=== PATIENT | male | born 1970 | race Caucasian/White ===

== ENCOUNTER 2025-06-23 10:50 | Inpatient (IN) ==
--- NOTE | 2025-06-23 11:21 | Emergency Department Note ---
ED Provider Note History of Present Illness Chief Complaint: Flu Like Symptoms Stated Complaint: FLU SX Time Seen by Provider: 06/23/25 11:04 54-year-old male who presents to the emergency department with a female friend (who also provides history) for evaluation of noticeable fatigue and poor appetite. The patient reports that symptoms started last weekend when he was at the gym working out. The patient reports that he felt heavy all over. He then started to develop fatigue. The following day, he did have several episodes of watery diarrhea. Since that time, the patient reports that the diarrhea has somewhat improved. He has not had any runny nose, congestion, sore throat or significant abdominal pain. He does report a mild nonproductive cough. The patient denies any other major health issues other than hypertension. He denies any known sick contacts. He currently denies any chest pain, shortness of breath or headache. He rates his overall discomfort a 6 out of 10. Home Medications Medication Instructions Recorded Confirmed Type losartan 50 mg tablet 50 mg PO DAILY 06/23/25 06/23/25 History metoprolol succinate 25 mg 25 mg PO DAILY 06/23/25 06/23/25 History tablet,extended release 24 hr (Toprol XL) Allergies Allergy/AdvReac Type Severity Reaction Status Date / Time No Known Allergies Allergy Unverified 06/23/25 11:14 Past Med/Surg History Problem List (Updated 06/23/25 @ 16:14 by Isidoro French) Elevated troponin I level (Acute) Anorexia (Acute) Weakness (Acute) Acute kidney injury (Acute) Hyponatremia (Acute) CKD stage 3a, GFR 45-59 ml/min GERD (gastroesophageal reflux disease) Hypokalemia (Acute) Acute diarrhea Sepsis Medical History Hypertension Surgical History No significant past surgical history Social History Smoking Status: Never smoker Preferred Language: Peruvian Feels Safe at Home: Yes Physical Exam Vital Signs Vital Signs - 24 hr 06/23/25 10:55 06/23/25 11:30 06/23/25 11:30 Temperature 36.9 C Temperature Source Temporal Artery Scan Pulse Rate 118 H Pulse Rate from SpO2 Sensor Respiratory Rate 20 Respiratory Effort / Characteristics Non-Labored Spontaneous Respiratory Depth Normal Respiratory Pattern Regular Blood Pressure 115/79 119/76 119/76 Blood Pressure Mean 91 87 87 Blood Pressure Position Sitting Pulse Oximetry 97 Oxygen Delivery Method Room Air Sepsis Recent Fever Within 48 Hours No Sepsis New/Unexplained Change in Mental Status No Sepsis Action Taken by Nursing No Action Required 06/23/25 11:30 06/23/25 11:30 06/23/25 11:30 Temperature Temperature Source Pulse Rate Pulse Rate from SpO2 Sensor Respiratory Rate Respiratory Effort / Characteristics Respiratory Depth Respiratory Pattern Blood Pressure 119/76 119/76 119/76 Blood Pressure Mean 87 87 87 Blood Pressure Position Pulse Oximetry Oxygen Delivery Method Sepsis Recent Fever Within 48 Hours Sepsis New/Unexplained Change in Mental Status Sepsis Action Taken by Nursing 06/23/25 11:30 06/23/25 11:34 06/23/25 11:42 Temperature Temperature Source Pulse Rate 101 H 101 H 99 H Pulse Rate from SpO2 Sensor 101 H 99 H Respiratory Rate 19 17 19 Respiratory Effort / Characteristics Respiratory Depth Respiratory Pattern Blood Pressure Blood Pressure Mean Blood Pressure Position Pulse Oximetry 96 98 97 Oxygen Delivery Method Room Air Sepsis Recent Fever Within 48 Hours Sepsis New/Unexplained Change in Mental Status Sepsis Action Taken by Nursing 06/23/25 11:51 06/23/25 12:00 06/23/25 12:12 Temperature Temperature Source Pulse Rate Pulse Rate from SpO2 Sensor 95 H 95 H 94 H Respiratory Rate 17 21 20 Respiratory Effort / Characteristics Respiratory Depth Respiratory Pattern Blood Pressure Blood Pressure Mean Blood Pressure Position Pulse Oximetry 97 98 99 Oxygen Delivery Method Sepsis Recent Fever Within 48 Hours Sepsis New/Unexplained Change in Mental Status Sepsis Action Taken by Nursing 06/23/25 12:21 06/23/25 12:30 06/23/25 12:42 Temperature Temperature Source Pulse Rate 91 H Pulse Rate from SpO2 Sensor 94 H 95 H Respiratory Rate 20 25 H 20 Respiratory Effort / Characteristics Respiratory Depth Respiratory Pattern Blood Pressure Blood Pressure Mean Blood Pressure Position Pulse Oximetry 97 98 Oxygen Delivery Method Sepsis Recent Fever Within 48 Hours Sepsis New/Unexplained Change in Mental Status Sepsis Action Taken by Nursing 06/23/25 12:48 06/23/25 12:48 06/23/25 12:48 Temperature Temperature Source Pulse Rate Pulse Rate from SpO2 Sensor Respiratory Rate Respiratory Effort / Characteristics Respiratory Depth Respiratory Pattern Blood Pressure 121/62 121/62 121/62 Blood Pressure Mean 87 87 87 Blood Pressure Position Pulse Oximetry Oxygen Delivery Method Sepsis Recent Fever Within 48 Hours Sepsis New/Unexplained Change in Mental Status Sepsis Action Taken by Nursing 06/23/25 12:48 06/23/25 12:48 06/23/25 12:48 Temperature Temperature Source Pulse Rate 87 Pulse Rate from SpO2 Sensor 87 Respiratory Rate 21 Respiratory Effort / Characteristics Respiratory Depth Respiratory Pattern Blood Pressure 121/62 121/62 Blood Pressure Mean 87 87 Blood Pressure Position Pulse Oximetry 93 Oxygen Delivery Method Sepsis Recent Fever Within 48 Hours Sepsis New/Unexplained Change in Mental Status Sepsis Action Taken by Nursing 06/23/25 12:51 06/23/25 12:51 Temperature Temperature Source Pulse Rate 85 88 Pulse Rate from SpO2 Sensor 89 Respiratory Rate 22 Respiratory Effort / Characteristics Respiratory Depth Respiratory Pattern Blood Pressure Blood Pressure Mean Blood Pressure Position Pulse Oximetry 97 Oxygen Delivery Method Sepsis Recent Fever Within 48 Hours Sepsis New/Unexplained Change in Mental Status Sepsis Action Taken by Nursing CONSTITUTIONAL: Healthy and well nourished. Alert and oriented X 3. GCS 15. Patient does not appear in any acute distress, nor does he appear toxic. HEENT: No scleral icterus or conjunctival injection. Mucous membranes are moist. Ears and nares are clear. NECK: Full active range of motion without discomfort. LYMPHATICS: No cervical chain adenopathy. RESPIRATORY: Clear to auscultation bilaterally with no wheezing, crackles, rhonchi or stridor. CARDIOVASCULAR: Regular rate and rhythm with no murmurs, rubs or gallops. GASTROINTESTINAL: Bowel sounds present in all quadrants. Abdomen is soft and nontender to palpation. MUSCULOSKELETAL: Full range of motion of all joints without discomfort. INTEGUMENTARY: No rash or other significant dermatologic conditions noted. HEMATOLOGIC: No ecchymosis or petechiae. PSYCHIATRIC: Positive affect. NEUROLOGIC: No focal neurologic deficits noted. Course Course Patient history and physical exam were performed. Nursing notes were reviewed. Vital signs were reviewed from triage, showing a mild tachycardia. The patient is not febrile, hypoxic, tachypneic or hypotensive. IV access was established, and labs were ordered and drawn. The patient was hydrated with a liter of normal saline. An ECG was performed, showing a sinus tachycardia with prolonged QT. No ischemic changes or infarct noted. The patient was placed on sharebroker while in the emergency department. Portable chest x-ray did not show any concerning findings. Review of labs shows a notable leukocytosis with a white count of nearly 20,000, with neutrophilic shift. Platelet count is normal. Coag study shows an elevated INR of 1.4. CMP shows multiple abnormalities, including hyponatremia, hypokalemia, elevated creatinine of 3.37, elevated total bilirubin and AST, as well as an elevated CPK and troponin of 30.6. TSH was normal. PCR testing for COVID-19, RSV and influenza was negative. Findings were discussed with the patient. I did indicate the severity of his condition, and recommended admission. The patient was in agreement with this plan. The case was then discussed with the [facility] hospitalist service, who did agree with admission. I did order a K rider to get started, in addition to an additional liter normal saline bolus. Please see hospitalist dictations for further treatment and final disposition. Administered Medications Discontinued Medications Sodium Chloride (Nss) 1,000 mls @ 999 mls/hr IV .Q1H1M ONE Stop: 06/23/25 12:14 Last Infusion: 06/23/25 13:05 Dose: Infused Documented By: Admin: 06/23/25 11:28 Dose: 999 mls/hr Documented By: AMS Potassium Chloride (K Teddy / Wtr) 10 meq in 100 mls @ 100 mls/hr IV ONE ONE Stop: 06/23/25 13:36 Last Admin: 06/23/25 12:42 Dose: 100 mls/hr Documented By: cathi Sodium Chloride (Nss) 1,000 mls @ 999 mls/hr IV .Q1H1M ONE Stop: 06/23/25 13:37 Last Admin: 06/23/25 12:43 Dose: 999 mls/hr Documented By: cathi Calcium Gluconate () 1,000 mg in 60 mls @ 240 mls/hr IV NOW STA Stop: 06/23/25 14:52 Last Admin: 06/23/25 15:06 Dose: 240 mls/hr Documented By: hina Potassium Chloride (Potassium Chloride 20 Meq/15 Ml Udc) 40 meq PO NOW STA Stop: 06/23/25 12:56 Last Admin: 06/23/25 13:21 Dose: 40 meq Documented By: asm Potassium Chloride (Potassium Chloride Crtab 20 Meq Tabcr) 40 meq PO NOW STA Stop: 06/23/25 14:38 Last Admin: 06/23/25 15:06 Dose: 40 meq Documented By: hina Medical Decision Making Medical Records Attestation: I reviewed the patient's medical records. Home Medications was personally reviewed by ut Laboratory Data Attestation: I reviewed the patient's lab results. 06/23/25 11:22 06/23/25 13:30 Lab Results 06/23/25 06/23/25 06/23/25 Range/Units 11:19 11:19 11:19 WBC (4.8-10.8) K/ul RBC (4.70-6.10) M/uL Hgb (14.0-18.0) g/dL Hct (42.0-52.0) % MCV (80.0-100.0) fL MCH (25.0-34.0) pg MCHC (32.0-36.0) g/dL RDW Std Deviation (36.4-46.3) fL RDW Coeff of Imani (11.5-14.5) % Plt Count (130-400) K/uL MPV (9.4-12.4) fL Neutrophils % (Manual) % Lymphocytes % (Manual) % Monocytes % (Manual) % Eosinophils % (Manual) % Neutrophils # (Manual) (1.40-6.50) K/uL Total Absolute Neuts (1.4-6.5) K/uL Lymphocytes # (Manual) (1.2-3.4) K/uL Total Abs Lymphocytes (1.2-3.4) K/uL Monocytes # (Manual) (0.11-0.59) K/uL Eosinophils # (Manual) (0-0.50) K/uL PT (9.0-12.0) Seconds INR (0.9-1.1) Sodium (136-145) mmol/L Potassium (3.5-5.1) mmol/L Chloride (98-107) mmol/L Carbon Dioxide (21-32) mmol/L Anion Gap (3-11) BUN (6-23) mg/dl Creatinine (0.6-1.4) mg/dl Est Cr Clr Drug Dosing ml/min eGFR BUN/Creatinine Ratio (10-20) Glucose (70-99(Fasting)) mg/dl Osmolality (280-300) mOsm/kg Calcium (8.6-10.3) mg/dl Magnesium (1.7-2.4) mg/dl Total Bilirubin (0.2-1.0) mg/dl AST (13-39) U/L ALT (7-52) U/L Alkaline Phosphatase (34-104) U/L Total Creatine Kinase (30-223) U/L Troponin I High Sens (0-20) pg/ml Total Protein (6.0-8.3) gm/dl Albumin (3.4-5.0) gm/dl Globulin (2.5-4.0) gm/dl Albumin/Globulin Ratio (0.9-2) TSH (0.300-4.500) uIu/ml Adenovirus (PCR) Not Detected (NotDetected) B. pertussis DNA (PCR) Not Detected (NotDetected) B.parapertussis DNA PCR Not Detected (NotDetected) C. pneumoniae DNA (PCR) Not Detected (NotDetected) Coronavirus OC43 (PCR) Not Detected (NotDetected) Coronavirus HKU1 (PCR) Not Detected (NotDetected) Coronavirus 229E (PCR) Not Detected (NotDetected) SARS-CoV-2 (PCR) NEGATIVE Not Detected (Negative) Coronavirus NL63 (PCR) Not Detected (NotDetected) Monoscreen (Negative) Human Metapneumovir PCR Not Detected (NotDetected) Influenza Type A (PCR) Negative Not Detected (Neg) Influenza Type B (PCR) Negative (Neg) M. pneumoniae (PCR) (NotDetected) Parainfluenza 1 (PCR) (NotDetected) Parainfluenza 2 (PCR) (NotDetected) Parainfluenza 3 (PCR) (NotDetected) Parainfluenza 4 (PCR) (NotDetected) RSV (RT-PCR) (Neg) RSV (PCR) (NotDetected) Entero/Rhino (PCR) (NotDetected) 06/23/25 06/23/25 Range/Units 11:19 11:22 WBC 19.65 H (4.8-10.8) K/ul RBC 5.65 (4.70-6.10) M/uL Hgb 17.5 (14.0-18.0) g/dL Hct 47.5 (42.0-52.0) % MCV 84.1 (80.0-100.0) fL MCH 31.0 (25.0-34.0) pg MCHC 36.8 H (32.0-36.0) g/dL RDW Std Deviation 37.0 (36.4-46.3) fL RDW Coeff of Imani 12.2 (11.5-14.5) % Plt Count 350 (130-400) K/uL MPV 9.1 L (9.4-12.4) fL Neutrophils % (Manual) 88 % Lymphocytes % (Manual) 5 % Monocytes % (Manual) 5 % Eosinophils % (Manual) 2 % Neutrophils # (Manual) 17.29 H (1.40-6.50) K/uL Total Absolute Neuts 17.29 H (1.4-6.5) K/uL Lymphocytes # (Manual) 0.98 L (1.2-3.4) K/uL Total Abs Lymphocytes 0.98 L (1.2-3.4) K/uL Monocytes # (Manual) 0.98 H (0.11-0.59) K/uL Eosinophils # (Manual) 0.39 (0-0.50) K/uL PT 14.3 H (9.0-12.0) Seconds INR 1.4 H (0.9-1.1) Sodium 126 L (136-145) mmol/L Potassium 2.4 L* (3.5-5.1) mmol/L Chloride 90 L (98-107) mmol/L Carbon Dioxide 20 L (21-32) mmol/L Anion Gap 16 H (3-11) BUN 75 H (6-23) mg/dl Creatinine 3.37 H (0.6-1.4) mg/dl Est Cr Clr Drug Dosing 30.9 ml/min eGFR 20.56 BUN/Creatinine Ratio 22.3 H (10-20) Glucose 133 H (70-99(Fasting)) mg/dl Osmolality 284 (280-300) mOsm/kg Calcium 8.6 (8.6-10.3) mg/dl Magnesium 2.3 (1.7-2.4) mg/dl Total Bilirubin 1.6 H (0.2-1.0) mg/dl AST 40 H (13-39) U/L ALT 51 (7-52) U/L Alkaline Phosphatase 64 (34-104) U/L Total Creatine Kinase 480 H (30-223) U/L Troponin I High Sens 30.6 H (0-20) pg/ml Total Protein 7.7 (6.0-8.3) gm/dl Albumin 3.3 L (3.4-5.0) gm/dl Globulin 4.4 H (2.5-4.0) gm/dl Albumin/Globulin Ratio 0.8 L (0.9-2) TSH 0.943 (0.300-4.500) uIu/ml Adenovirus (PCR) (NotDetected) B. pertussis DNA (PCR) (NotDetected) B.parapertussis DNA PCR (NotDetected) C. pneumoniae DNA (PCR) (NotDetected) Coronavirus OC43 (PCR) (NotDetected) Coronavirus HKU1 (PCR) (NotDetected) Coronavirus 229E (PCR) (NotDetected) SARS-CoV-2 (PCR) (Negative) Coronavirus NL63 (PCR) (NotDetected) Monoscreen Negative (Negative) Human Metapneumovir PCR (NotDetected) Influenza Type A (PCR) (Neg) Influenza Type B (PCR) Not Detected (Neg) M. pneumoniae (PCR) Not Detected (NotDetected) Parainfluenza 1 (PCR) Not Detected (NotDetected) Parainfluenza 2 (PCR) Not Detected (NotDetected) Parainfluenza 3 (PCR) Not Detected (NotDetected) Parainfluenza 4 (PCR) Not Detected (NotDetected) RSV (RT-PCR) Negative (Neg) RSV (PCR) Not Detected (NotDetected) Entero/Rhino (PCR) Not Detected (NotDetected) Imaging Data Attestation: I personally reviewed and interpreted this imaging study as follows: My Impression: My interpretation of reportable chest x-ray does not show evidence for pneumonia, pneumothorax or cardiomegaly. Radiologist report was also reviewed with concurrence. Radiologist's Impression: Chest X-Ray 06/23/25 11:15 XR chest 1V portable CLINICAL HISTORY: weakness COMPARISON STUDY: No previous studies for comparison. FINDINGS: Lung volumes are normal. Lungs are clear. There is no pneumothorax or pleural effusion. Cardiac size is normal. Mediastinal contours are normal. There is no evidence for pulmonary edema. IMPRESSION: No acute cardiopulmonary findings. ACT 112: Negative or not required by law. Electronically signed by: Jay Jaimes M.D. 06/23/2025 11:51 AM ECG Data Attestation: I personally reviewed and interpreted this ECG as follows: Indication: + weakness Rate (beats per minute): 101 Rhythm: + sinus tachycardia ECG Intervals/blocks: + Normal QRS and + Prolonged QT ECG [place]: + Normal ECG ST segments: + Normal ST segments Comparison ECG Date: no prior available MDM Narrative Cardiac monitoring: An order was placed for continuous cardiac monitoring. The monitor shows a rate of 101 bpm with a sinus tachycardic rhythm. 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 See ED Course section for further details of today's visit. The patient presents with primary complaint of weakness and poor appetite. His laboratory workup today does show significant findings, including a marked leukocytosis, hyponatremia, hypokalemia, elevated troponin as well as a creatinine of 3.37. I do not have any prior records for comparison, therefore concerning for an acute kidney injury. The patient is afebrile and not hypotensive, therefore I do not suspect SIRS or sepsis. Patient does have multiple electrolyte abnormalities that will require further inpatient repletion. Patient also has a bump to troponin within normal ECG. This will require further serial testing. [facility]. Impression Hyponatremia, Hypokalemia, Acute kidney injury, Weakness, Anorexia, Elevated troponin I level Discharge Plan Visit Data Chief Complaint: Flu Like Symptoms Stated Complaint: FLU SX ED Provider: Julius Kohler ED Midlevel Provider: Isidoro French Discharge Problem: Hyponatremia, Hypokalemia, Acute kidney injury, Weakness, Anorexia, Elevated troponin I level Patient Disposition: Admitted As Inpatient Condition: Fair ED DC CONDITION Conditon at Discharge Condition at Discharge: Fair
[2025-06-23] MEDS: SODIUM CHLORIDE 0.9% 1,000 ML IV ONE ×2 (11:28→12:43)
--- NOTE | 2025-06-23 11:52 | XRay Report ---
XR chest 1V portable CLINICAL HISTORY: weakness COMPARISON STUDY: No previous studies for comparison. FINDINGS: Lung volumes are normal. Lungs are clear. There is no pneumothorax or pleural effusion. Car diac size is normal. Mediastinal contours are normal. There is no evidence for pulmonary edema. IMPRESSION: No acute cardiopulmonary findings. ACT 112: Negative or not required by law. Electronically signed by: Jay Jaimes M.D. 06/23/2025 11:51 AM
[2025-06-23 12:18] LABS: INR 1.4 (0.9-1.1); Prothrombin Time 14.3 Seconds (9.0-12.0)
[2025-06-23 12:26] LABS: Alanine Aminotransferase 51.0 U/L (7-52); Albumin Globulin Ratio 0.8 (0.9-2); Albumin Level 3.3 gm/dl (3.4-5.0); Alkaline Phosphatase 64.0 U/L (34-104); Anion Gap 16.0 (3-11); Bilirubin,Total 1.6 mg/dl (0.2-1.0); Blood Urea Nitrogen 75.0 mg/dl (6-23); Calcium 8.6 mg/dl (8.6-10.3); Carbon Dioxide 20.0 mmol/L (21-32); Chloride 90.0 mmol/L (98-107); Creatine Kinase 480.0 U/L (30-223); Creatinine Clr Calc Pharmacy 30.9 ml/min; Globulin 4.4 gm/dl (2.5-4.0); Glucose 133.0 mg/dl (70-99(Fasting)); Magnesium 2.3 mg/dl (1.7-2.4); Potassium 2.4 mmol/L (3.5-5.1); Sodium 126.0 mmol/L (136-145); Thyroid Stimulating Hormone 0.943 uIu/ml (0.300-4.500); Total Protein 7.7 gm/dl (6.0-8.3)
[2025-06-23 12:27] LABS: Influenza A virus by PCR Negative (Neg); Influenza B virus by PCR Negative (Neg); SARS CoV2 RNA(COVID-19) Ceph NEGATIVE (Negative)
[2025-06-23] MEDS: POTASSIUM CHLORIDE / WTR 10 MEQ/100 ML PLCT IV ONE (12:42)
--- NOTE | 2025-06-23 13:20 | History & Physical Report ---
Date of Service June 23, 2025 Assessment & Plan (1) Hypertension: (2) CKD stage 3a, GFR 45-59 ml/min: (3) GERD (gastroesophageal reflux disease): (4) Hypokalemia: (5) Acute diarrhea: (6) Sepsis: (7) Hyponatremia: Plan 54 yo male with pmhx of HTN, GERD, CKD stage 3b, class II obesity who presents for not feeling well at home 2/2 sepsis from acute diarrheal illness. #Sepsis #Acute Diarrhea -patient with acute diarrhea for past few days, nausea, and vomiting -sepsis due to leukocytosis, tachycardia with source of abdomen, benign abdomen -significant electrolyte abnormalities 2/2 poor PO intake Plan: -CT abdomen/pelvis with IV contrast given significant sepsis, diarrhea, r/o abscess -check blood cultures, lactic acid, replenish further fluids for sepsis workup -start zosyn empirically given sepsis, can stop/deescalate after 24 hours once source obtained -check stool and nasal biofire #CHRISTIANO on CKD Stage 3a #Hypovolemic Hyponatremia #Hypokalemia -likely in setting of poor PO intake, diarrhea, nausea, vomiting -baseline creatinine 1.3 Plan: -check UA, renal US -check urine osmoles, serum osmoles, urine sodium -aggressively replenish potassium, calcium -check AM cortisol #Gamma Gap -could be secondary to electrolyte abnormalities Plan: -check Hep C, HIV #HTN -hold losartan, metoprolol I spent a total of 80 minutes in direct patient care, including [id number] time with the patient and/or family, reviewing medical records, ordering and reviewing diagnostic tests, and coordinating care with other healthcare providers. This time includes: history taking, physical examination, medical decision making, counseling, ECG interpretation, imaging interpretation, lab interpretation, orders, and education, excluding time spent in the performance of separately billed services. History of Present Illness Chief Complaint: -not feeling well Primary Care Provider: Jeana Coleman MD 54 yo male with pmhx of HTN, GERD, CKD stage 3b, class II obesity who presents for not feeling well at home. No admissions at this institution. In the ED, given fluids, potassium, CBC still pending, admitted to medicine for further workup. Patient seen and examined at bedside. Accompanied by friend. Patient has been feeling ill for days. Has diarrhea, fatigue, weakness, some nausea and vomiting. Has no other associated symptoms such as abdominal pain, chest pain, SOB, burning with urination, leg swelling. Symptoms have been present for around 5 days and has just been getting worse. Chewing tobacco use, social alcohol use, no drug use, works at [employer], full code. Allergies Allergy/AdvReac Type Severity Reaction Status Date / Time No Known Allergies Allergy Unverified 06/23/25 11:14 Home Medications Medication Instructions Recorded Confirmed Type losartan 50 mg tablet 50 mg PO DAILY 06/23/25 06/23/25 History metoprolol succinate 25 mg 25 mg PO DAILY 06/23/25 06/23/25 History tablet,extended release 24 hr (Toprol XL) Past Med/Surg History Problem List (Updated 06/23/25 @ 14:36 by Isidoro Choudhary MD) Hyponatremia CKD stage 3a, GFR 45-59 ml/min GERD (gastroesophageal reflux disease) Hypokalemia Acute diarrhea Sepsis Medical History Hypertension Surgical History No significant past surgical history Social History Smoking Status: Never smoker Preferred Language: Estonian Feels Safe at Home: Yes Review of Systems Review of Systems: -negative unless listed above Physical Exam Physical Exam: Gen: A&O 3 NAD HEENT: NCAT, EOMI, not icteric. External ears normal. No rhinorrhea. Dry mucous membranes. Neck: Supple, full range of motion, no observable masses, No meningeal sign. Lungs: No Respiratory distress. CV: RRR, no edema. Abdomen: Soft, nondistended, No rebound tenderness. MSK: No joint swelling, no redness. Skin: No rashes, petechiae, lesions. Normal color per patient. Neuro: Normal Gait, Grossly intact. Psych: Appropriate for situation. Results & Data Results & Data Vital Signs (Past 12 Hours) Vital Signs Temp Pulse Resp BP Pulse Ox O2 Del Method 06/23/25 13:00 84 20 97 06/23/25 13:00 125/61 06/23/25 13:00 125/61 06/23/25 13:00 125/61 06/23/25 13:00 125/61 06/23/25 12:51 88 22 97 06/23/25 12:51 85 06/23/25 12:48 87 21 93 06/23/25 12:48 121/62 06/23/25 12:48 121/62 06/23/25 12:48 121/62 06/23/25 12:48 121/62 06/23/25 12:48 121/62 06/23/25 12:42 91 H 20 06/23/25 12:30 25 H 98 06/23/25 12:21 20 97 06/23/25 12:12 20 99 06/23/25 12:00 21 98 06/23/25 11:51 17 97 06/23/25 11:42 99 H 19 97 06/23/25 11:34 101 H 17 98 Room Air 06/23/25 11:30 101 H 19 96 06/23/25 11:30 119/76 06/23/25 11:30 119/76 06/23/25 11:30 119/76 06/23/25 11:30 119/76 06/23/25 11:30 119/76 06/23/25 10:55 36.9 C 118 H 20 115/79 97 Room Air Laboratory Results -personally reviewed, leukocytosis of 20 suggestive of acute illness, Na of 129 improved with fluids, K of 2.6 working on replenishment, creatinine 3.13 improving with fluids, calcium of 7.8 replenished Code Status & VTE Plan VTE Prophylaxis Plan VTE Prophylaxis will be ordered: Yes
[2025-06-23] MEDS: POTASSIUM CHLORIDE 20 MEQ/15 ML UDC PO STA (13:21)
[2025-06-23 13:52] LABS: Hematocrit (blood only) 47.5 % (42.0-52.0); Hemoglobin 17.5 g/dL (14.0-18.0); Mean Corpuscular Hemoglobin 31.0 pg (25.0-34.0); Mean Corpuscular Volume 84.1 fL (80.0-100.0); Platelet Count 350 K/uL (130-400); RDW Standard Deviation 37.0 fL (36.4-46.3); Red Blood Count 5.65 M/uL (4.70-6.10); White Blood Count 19.65 K/ul (4.8-10.8)
[2025-06-23 13:53] LABS: ALC (manual) 0.98 K/uL (1.2-3.4); ANC (manual) 17.29 K/uL (1.4-6.5)
[2025-06-23 14:02] LABS: Anion Gap 13.0 (3-11); Blood Urea Nitrogen 74.0 mg/dl (6-23); Calcium 7.8 mg/dl (8.6-10.3); Carbon Dioxide 21.0 mmol/L (21-32); Chloride 95.0 mmol/L (98-107); Creatinine Clr Calc Pharmacy 33.3 ml/min; Glucose 118.0 mg/dl (70-99(Fasting)); Potassium 2.6 mmol/L (3.5-5.1); Sodium 129.0 mmol/L (136-145)
[2025-06-23 14:36] LABS: Chlamydia pneumoniae PCR Not Detected (NotDetected); Coronavirus 229E PCR Not Detected (NotDetected); Coronavirus CoV-2 (COVID19)PCR Not Detected (NotDetected); Coronavirus HKU1 PCR Not Detected (NotDetected); Coronavirus NL63 PCR Not Detected (NotDetected); Coronavirus OC43PCR Not Detected (NotDetected); Human Metapneumovirus PCR Not Detected (NotDetected); Parainfluenza Virus 1 PCR Not Detected (NotDetected); Parainfluenza Virus 2 PCR Not Detected (NotDetected); Parainfluenza Virus 3 PCR Not Detected (NotDetected); Parainfluenza Virus 4 PCR Not Detected (NotDetected); Respiratory Syncytial VirusPCR Not Detected (NotDetected); Rhinovirus/Enterovirus PCR Not Detected (NotDetected)
[2025-06-23] MEDS: CALCIUM GLUCONATE 1,000 MG/60 ML BAG IV STA (15:06)
[2025-06-23] MEDS: POTASSIUM CHLORIDE CRTAB 20 MEQ TABCR PO STA (15:06)
[2025-06-23] MEDS: OPTIRAY 320 100ml IV ONE (16:06)
--- NOTE | 2025-06-23 16:25 | CT Scan Report ---
Clinical History: Diarrhea. Sepsis Technique: Axial computed tomography images were obtained of the abdomen and pelvis after the administration of intravenous contrast. No prior CT is available for comparison. Findings: The liver is overall of normal size, attenuation, and contour with no sign of cirrhosis or significant fatty infiltration. There are several hepatic cysts, measuring up to 2.6 cm. No definite Liver mass lesion is seen. The portal vein is patent. The gallbladder appears unremarkable. No bile duct dilatation is noted. The spleen is enlarged measuring 15.4 cm. No focal splenic lesion is evident. The pancreas appears normal with no sign of acute or chronic pancreatitis and no mass lesion noted. The pancreatic duct is of normal caliber. The adrenal glands appear unremarkable. There are bilateral renal calculi, measuring up to 5 mm in size. There is no hydronephrosis or perinephric stranding. No renal mass lesion is identified. There is a small 6 mm right renal cyst The aorta is of normal caliber. No abdominal adenopathy is seen. The stomach appears normal. There is no sign of small bowel obstruction. The colon appears unremarkable. The appendix appears normal also. No free intraperitoneal fluid or air is identified. No distal ureteral or bladder calculi are seen. No bladder mass lesion is evident. The iliac arteries are of normal caliber. No pelvic adenopathy is noted. There are small bilateral inguinal hernias containing only fat The lungs bases appear clear. Mild thoracolumbar degenerative disc disease is seen. No fracture is identified. No focal osseous lesion is seen Impression: 1. Hepatic and right renal cysts 2. Splenomegaly 3. Bilateral renal calculi 4. Small bilateral inguinal hernias containing fat ACT 112: Positive. There are findings on this exam that require communication between the performing entity and the patient following Patient Test Result Information Act ([place] ACT 112) guidelines. Electronically signed by Pedro Strickland 06-23-2025 4:24 PM
[2025-06-23] MEDS ORDERED: POLYETHYLENE (MIRALAX) 17 GM PACK PO PRN (16:47)
[2025-06-23] MEDS ORDERED: ONDANSETRON INJ 2 MG/ML 2 ML VIAL IV PRN (16:47)
[2025-06-23] MEDS: LACTATED RINGER'S 1,000 ML IV SCH (17:11)
[2025-06-23] MEDS: POTASSIUM CHLORIDE / WTR 10 MEQ/100 ML PLCT IV SCH (17:12)
--- NOTE | 2025-06-23 17:26 | Ultrasound Report ---
Technique: Renal sonography was performed Findings: The kidneys are of normal size and echogenicity. The right kidney measures 11.7 cm in length and the left kidney measures 12.5 cm in length. There is no hydronephrosis or visualized hydroureter. No definite renal calculus or mass is seen. The urinary bladder appears unremarkable. The spleen is enlarged measuring 16 cm Impression: 1. Normal-appearing kidneys 2. Splenomegaly Electronically signed by Pedro Strickland 06-23-2025 5:25 PM
[2025-06-23] MEDS: PIPERACILLIN/TAZOBACTAM 4.5 GM/100 ML BAG IV STA (18:10)
[2025-06-23] MEDS: POTASSIUM CHLORIDE CRTAB 20 MEQ TABCR PO SCH (18:16)
[2025-06-23] MEDS: HEPARIN SOD 5,000 UNIT/0.5 ML VIAL SQ SCH (18:19)
--- NOTE | 2025-06-23 18:29 | Electrocardiogram Report ---
Test Reason : Blood Pressure : */* mmHG Vent. Rate : 101 BPM Atrial Rate : 101 BPM P-R Int : 156 ms QRS Dur : 84 ms QT Int : 420 ms P-R-T Axes : 41 1 10 degrees QTcB Int : 545 ms Sinus tachycardia Minimal voltage criteria for LVH, may be normal variant ( R in aVL ) Nonspecific ST abnormality Prolonged QT Abnormal ECG No previous ECGs available Confirmed by Theodore Alfaro ([id number]) on 06/23/2025 6:28:25 PM Referred By: Confirmed By: Theodore Alfaro
[2025-06-23] MEDS: ACETAMINOPHEN 325 MG TAB PO PRN (19:26)
[2025-06-24] MEDS: PIPERACILLIN/TAZOBACTAM 4.5 GM/100 ML BAG IV SCH (01:54)
[2025-06-24 02:20] LABS: Appearance Urine Cloudy (Clear); Bacteria Urine Automated None Seen (None Seen); Glucose Urine UA Negative (Negative); RBC Urine Automated 0-2 /hpf (0-2); WBC Urine Automated 0-5 /hpf (0-5)
[2025-06-24 07:40] LABS: Hematocrit (blood only) 33.9 % (42.0-52.0); Hemoglobin 12.6 g/dL (14.0-18.0); Mean Corpuscular Hemoglobin 31.0 pg (25.0-34.0); Mean Corpuscular Volume 83.5 fL (80.0-100.0); Platelet Count 291 K/uL (130-400); RDW Standard Deviation 37.6 fL (36.4-46.3); Red Blood Count 4.06 M/uL (4.70-6.10); White Blood Count 12.24 K/ul (4.8-10.8)
[2025-06-24 08:03] LABS: Alanine Aminotransferase 44.0 U/L (7-52); Albumin Globulin Ratio 0.9 (0.9-2); Albumin Level 2.9 gm/dl (3.4-5.0); Alkaline Phosphatase 55.0 U/L (34-104); Anion Gap 10.0 (3-11); Bilirubin,Total 1.6 mg/dl (0.2-1.0); Blood Urea Nitrogen 59.0 mg/dl (6-23); Calcium 8.0 mg/dl (8.6-10.3); Carbon Dioxide 22.0 mmol/L (21-32); Chloride 99.0 mmol/L (98-107); Creatinine Clr Calc Pharmacy 36.9 ml/min; Globulin 3.3 gm/dl (2.5-4.0); Glucose 148.0 mg/dl (70-99(Fasting)); Magnesium 2.2 mg/dl (1.7-2.4); Potassium 2.6 mmol/L (3.5-5.1); Sodium 131.0 mmol/L (136-145); Total Protein 6.2 gm/dl (6.0-8.3)
--- NOTE | 2025-06-24 08:27 | Hospitalist Progress Note ---
Date of Service June 24, 2025 Assessment & Plan (1) Hypertension: (2) CKD stage 3a, GFR 45-59 ml/min: (3) GERD (gastroesophageal reflux disease): (4) Hypokalemia: (5) Acute diarrhea: (6) Sepsis: (7) Hyponatremia: Plan 54 yo male with pmhx of HTN, GERD, CKD stage 3b, class II obesity who presents for not feeling well at home 2/2 sepsis from acute diarrheal illness. #Sepsis #Acute Diarrhea -patient with acute diarrhea for past few days, nausea, and vomiting -sepsis due to leukocytosis, tachycardia with source of abdomen, benign abdomen -significant electrolyte abnormalities 2/2 poor PO intake Plan: -CT abdomen/pelvis with IV contrast given significant sepsis, diarrhea, r/o/ed abscess -blood cultures - so far no growth -lactic acid 1.3, nl -start zosyn on admission, empirically given sepsis, cont. for now -resp. biofire negat. -stool pcr, and c. diff pending collection #CHRISTIANO on CKD Stage 3a #Hypovolemic Hyponatremia #Hypokalemia -likely in setting of poor PO intake, diarrhea, nausea, vomiting - Cr on admission 3.3, now down to 2.8 after IVF -baseline creatinine 1.3 Plan: -UA - negat. -renal US - normal appearing kidneys -urine osmoles 483, serum osmoles 284, urine sodium 21 -AM cortisol elev. -aggressively replenish potassium, calcium -will further discuss w/ nephrology #HTN -hold losartan, metoprolol Admission and Anticipated Discharge Date Admission Date: June 23, 2025 Subjective Pt seen in follow up CHRISTIANO, hyponatremia, elev. WBC - sepsis Presents w/ weakness, diarrhea WBC improved, Cr improved today Pt lying in bed in NAD, says he feels a lot better since he came to the hospital Says he had no appetite at home and so would not eat or drink reports having loose stool once a day, but no abdominal pain, does not think he had any blood in his stool. No chest pain, no shortness of breath Review of Systems Review of Systems: All systems reviewed & are unremarkable except as noted in Subjective Physical Exam Physical Exam: Gen: A&O 3 NAD HEENT: NCAT, EOMI Neck: Supple Lungs: No Respiratory distress. CV: RRR, no edema. Abdomen: Soft, nondistended, nontender MSK: moves extremities Skin: warm, dry Neuro: awake, alert, answers simple questions appropriately, moves extremities Results & Data Results & Data Vital Signs (Past 12 Hours) Vital Signs Temp Pulse Pulse Resp BP BP Pulse Ox 06/24/25 08:19 36.6 C 85 20 136/74 98 06/24/25 07:13 56 L 06/24/25 03:40 37.3 C 92 H 18 111/66 99 06/23/25 23:12 36.5 C 75 18 115/74 98 06/23/25 21:30 79 06/23/25 20:42 36.9 C O2 Del Method 06/24/25 08:19 Room Air 06/24/25 07:13 06/24/25 03:40 Room Air 06/23/25 23:12 Room Air 06/23/25 21:30 06/23/25 20:42 Laboratory Results 06/24/25 06/24/25 06/23/25 Range/Units 06:59 02:00 15:36 WBC 12.24 H (4.8-10.8) K/ul RBC 4.06 L (4.70-6.10) M/uL Hgb 12.6 L D (14.0-18.0) g/dL Hct 33.9 L (42.0-52.0) % MCV 83.5 (80.0-100.0) fL MCH 31.0 (25.0-34.0) pg MCHC 37.2 H (32.0-36.0) g/dL RDW Std Deviation 37.6 (36.4-46.3) fL RDW Coeff of Imani 12.3 (11.5-14.5) % Plt Count 291 (130-400) K/uL MPV 8.9 L (9.4-12.4) fL Neutrophils % (Manual) % Lymphocytes % (Manual) % Monocytes % (Manual) % Eosinophils % (Manual) % Neutrophils # (Manual) (1.40-6.50) K/uL Total Absolute Neuts (1.4-6.5) K/uL Lymphocytes # (Manual) (1.2-3.4) K/uL Total Abs Lymphocytes (1.2-3.4) K/uL Monocytes # (Manual) (0.11-0.59) K/uL Eosinophils # (Manual) (0-0.50) K/uL PT (9.0-12.0) Seconds INR (0.9-1.1) Sodium 131 L (136-145) mmol/L Potassium 2.6 L (3.5-5.1) mmol/L Chloride 99 (98-107) mmol/L Carbon Dioxide 22 (21-32) mmol/L Anion Gap 10 (3-11) BUN 59 H (6-23) mg/dl Creatinine 2.84 H (0.6-1.4) mg/dl Est Cr Clr Drug Dosing 36.9 ml/min eGFR 25.24 BUN/Creatinine Ratio 20.8 H (10-20) Glucose 148 H (70-99(Fasting)) mg/dl Osmolality (280-300) mOsm/kg Lactate 1.3 (0.4-2.0) mmol/L Calcium 8.0 L (8.6-10.3) mg/dl Phosphorus 1.9 L D (2.5-4.9) mg/dl Magnesium 2.2 (1.7-2.4) mg/dl Total Bilirubin 1.6 H (0.2-1.0) mg/dl AST 33 (13-39) U/L ALT 44 (7-52) U/L Alkaline Phosphatase 55 (34-104) U/L Total Creatine Kinase (30-223) U/L Troponin I High Sens (0-20) pg/ml Total Protein 6.2 (6.0-8.3) gm/dl Albumin 2.9 L (3.4-5.0) gm/dl Globulin 3.3 (2.5-4.0) gm/dl Albumin/Globulin Ratio 0.9 (0.9-2) TSH (0.300-4.500) uIu/ml Cortisol AM Sample 32.65 H (6.2-22.6) mcg/dl Urine Color Yellow Urine Appearance Cloudy A (Clear) Urine pH 5.0 (4.5-7.5) Ur Specific [place] 1.028 (1.000-1.030) Urine Protein 1+ H (Negative) Urine Glucose (UA) Negative (Negative) Urine Ketones Negative (Negative) Urine Blood 1+ H (Negative) Urine Nitrite Negative (Negative) Urine Bilirubin Negative (Negative) Urine Urobilinogen Negative (Negative) Ur Leukocyte Esterase Negative (Negative) Urine WBC (Auto) 0-5 (0-5) /hpf Urine RBC (Auto) 0-2 (0-2) /hpf U Hyaline Cast (Auto) 3-5 H (0-2) /lpf U Epithel Cells (Auto) 6-10 H (0-2) /hpf Urine Bacteria (Auto) None Seen (None Seen) Urine Comment Adenovirus (PCR) (NotDetected) B. pertussis DNA (PCR) (NotDetected) B.parapertussis DNA PCR (NotDetected) C. pneumoniae DNA (PCR) (NotDetected) Coronavirus OC43 (PCR) (NotDetected) Coronavirus HKU1 (PCR) (NotDetected) Coronavirus 229E (PCR) (NotDetected) SARS-CoV-2 (PCR) (Negative) Coronavirus NL63 (PCR) (NotDetected) Hepatitis C Antibody Negative (Negative) Monoscreen (Negative) HIV 1&2 Ab/P24 Ag 4thGn Negative (Negative) Human Metapneumovir PCR (NotDetected) Influenza Type A (PCR) (Neg) Influenza Type B (PCR) (Neg) M. pneumoniae (PCR) (NotDetected) Parainfluenza 1 (PCR) (NotDetected) Parainfluenza 2 (PCR) (NotDetected) Parainfluenza 3 (PCR) (NotDetected) Parainfluenza 4 (PCR) (NotDetected) RSV (RT-PCR) (Neg) RSV (PCR) (NotDetected) Entero/Rhino (PCR) (NotDetected) 06/23/25 06/23/25 06/23/25 Range/Units 13:30 11:22 11:19 WBC 19.65 H (4.8-10.8) K/ul RBC 5.65 (4.70-6.10) M/uL Hgb 17.5 (14.0-18.0) g/dL Hct 47.5 (42.0-52.0) % MCV 84.1 (80.0-100.0) fL MCH 31.0 (25.0-34.0) pg MCHC 36.8 H (32.0-36.0) g/dL RDW Std Deviation 37.0 (36.4-46.3) fL RDW Coeff of Imani 12.2 (11.5-14.5) % Plt Count 350 (130-400) K/uL MPV 9.1 L (9.4-12.4) fL Neutrophils % (Manual) 88 % Lymphocytes % (Manual) 5 % Monocytes % (Manual) 5 % Eosinophils % (Manual) 2 % Neutrophils # (Manual) 17.29 H (1.40-6.50) K/uL Total Absolute Neuts 17.29 H (1.4-6.5) K/uL Lymphocytes # (Manual) 0.98 L (1.2-3.4) K/uL Total Abs Lymphocytes 0.98 L (1.2-3.4) K/uL Monocytes # (Manual) 0.98 H (0.11-0.59) K/uL Eosinophils # (Manual) 0.39 (0-0.50) K/uL PT 14.3 H (9.0-12.0) Seconds INR 1.4 H (0.9-1.1) Sodium 129 L 126 L (136-145) mmol/L Potassium 2.6 L 2.4 L* (3.5-5.1) mmol/L Chloride 95 L 90 L (98-107) mmol/L Carbon Dioxide 21 20 L (21-32) mmol/L Anion Gap 13 H 16 H (3-11) BUN 74 H 75 H (6-23) mg/dl Creatinine 3.13 H 3.37 H (0.6-1.4) mg/dl Est Cr Clr Drug Dosing 33.3 30.9 ml/min eGFR 22.46 20.56 BUN/Creatinine Ratio 23.6 H 22.3 H (10-20) Glucose 118 H 133 H (70-99(Fasting)) mg/dl Osmolality 284 (280-300) mOsm/kg Lactate (0.4-2.0) mmol/L Calcium 7.8 L 8.6 (8.6-10.3) mg/dl Phosphorus 3.4 (2.5-4.9) mg/dl Magnesium 2.3 (1.7-2.4) mg/dl Total Bilirubin 1.6 H (0.2-1.0) mg/dl AST 40 H (13-39) U/L ALT 51 (7-52) U/L Alkaline Phosphatase 64 (34-104) U/L Total Creatine Kinase 480 H (30-223) U/L Troponin I High Sens 26.3 H 30.6 H (0-20) pg/ml Total Protein 7.7 (6.0-8.3) gm/dl Albumin 3.3 L (3.4-5.0) gm/dl Globulin 4.4 H (2.5-4.0) gm/dl Albumin/Globulin Ratio 0.8 L (0.9-2) TSH 0.943 (0.300-4.500) uIu/ml Cortisol AM Sample (6.2-22.6) mcg/dl Urine Color Urine Appearance (Clear) Urine pH (4.5-7.5) Ur Specific [place] (1.000-1.030) Urine Protein (Negative) Urine Glucose (UA) (Negative) Urine Ketones (Negative) Urine Blood (Negative) Urine Nitrite (Negative) Urine Bilirubin (Negative) Urine Urobilinogen (Negative) Ur Leukocyte Esterase (Negative) Urine WBC (Auto) (0-5) /hpf Urine RBC (Auto) (0-2) /hpf U Hyaline Cast (Auto) (0-2) /lpf U Epithel Cells (Auto) (0-2) /hpf Urine Bacteria (Auto) (None Seen) Urine Comment Adenovirus (PCR) (NotDetected) B. pertussis DNA (PCR) (NotDetected) B.parapertussis DNA PCR (NotDetected) C. pneumoniae DNA (PCR) (NotDetected) Coronavirus OC43 (PCR) (NotDetected) Coronavirus HKU1 (PCR) (NotDetected) Coronavirus 229E (PCR) (NotDetected) SARS-CoV-2 (PCR) (Negative) Coronavirus NL63 (PCR) (NotDetected) Hepatitis C Antibody (Negative) Monoscreen Negative (Negative) HIV 1&2 Ab/P24 Ag 4thGn (Negative) Human Metapneumovir PCR (NotDetected) Influenza Type A (PCR) (Neg) Influenza Type B (PCR) Not Detected (Neg) M. pneumoniae (PCR) Not Detected (NotDetected) Parainfluenza 1 (PCR) Not Detected (NotDetected) Parainfluenza 2 (PCR) Not Detected (NotDetected) Parainfluenza 3 (PCR) Not Detected (NotDetected) Parainfluenza 4 (PCR) Not Detected (NotDetected) RSV (RT-PCR) Negative (Neg) RSV (PCR) Not Detected (NotDetected) Entero/Rhino (PCR) Not Detected (NotDetected) 06/23/25 06/23/25 06/23/25 Range/Units 11:19 11: 11:19 WBC (4.8-10.8) K/ul RBC (4.70-6.10) M/uL Hgb (14.0-18.0) g/dL Hct (42.0-52.0) % MCV (80.0-100.0) fL MCH (25.0-34.0) pg MCHC (32.0-36.0) g/dL RDW Std Deviation (36.4-46.3) fL RDW Coeff of Imani (11.5-14.5) % Plt Count (130-400) K/uL MPV (9.4-12.4) fL Neutrophils % (Manual) % Lymphocytes % (Manual) % Monocytes % (Manual) % Eosinophils % (Manual) % Neutrophils # (Manual) (1.40-6.50) K/uL Total Absolute Neuts (1.4-6.5) K/uL Lymphocytes # (Manual) (1.2-3.4) K/uL Total Abs Lymphocytes (1.2-3.4) K/uL Monocytes # (Manual) (0.11-0.59) K/uL Eosinophils # (Manual) (0-0.50) K/uL PT (9.0-12.0) Seconds INR (0.9-1.1) Sodium (136-145) mmol/L Potassium (3.5-5.1) mmol/L Chloride (98-107) mmol/L Carbon Dioxide (21-32) mmol/L Anion Gap (3-11) BUN (6-23) mg/dl Creatinine (0.6-1.4) mg/dl Est Cr Clr Drug Dosing ml/min eGFR BUN/Creatinine Ratio (10-20) Glucose (70-99(Fasting)) mg/dl Osmolality (280-300) mOsm/kg Lactate (0.4-2.0) mmol/L Calcium (8.6-10.3) mg/dl Phosphorus (2.5-4.9) mg/dl Magnesium (1.7-2.4) mg/dl Total Bilirubin (0.2-1.0) mg/dl AST (13-39) U/L ALT (7-52) U/L Alkaline Phosphatase (34-104) U/L Total Creatine Kinase (30-223) U/L Troponin I High Sens (0-20) pg/ml Total Protein (6.0-8.3) gm/dl Albumin (3.4-5.0) gm/dl Globulin (2.5-4.0) gm/dl Albumin/Globulin Ratio (0.9-2) TSH (0.300-4.500) uIu/ml Cortisol AM Sample (6.2-22.6) mcg/dl Urine Color Urine Appearance (Clear) Urine pH (4.5-7.5) Ur Specific [place] (1.000-1.030) Urine Protein (Negative) Urine Glucose (UA) (Negative) Urine Ketones (Negative) Urine Blood (Negative) Urine Nitrite (Negative) Urine Bilirubin (Negative) Urine Urobilinogen (Negative) Ur Leukocyte Esterase (Negative) Urine WBC (Auto) (0-5) /hpf Urine RBC (Auto) (0-2) /hpf U Hyaline Cast (Auto) (0-2) /lpf U Epithel Cells (Auto) (0-2) /hpf Urine Bacteria (Auto) (None Seen) Urine Comment Adenovirus (PCR) Not Detected (NotDetected) B. pertussis DNA (PCR) Not Detected (NotDetected) B.parapertussis DNA PCR Not Detected (NotDetected) C. pneumoniae DNA (PCR) Not Detected (NotDetected) Coronavirus OC43 (PCR) Not Detected (NotDetected) Coronavirus HKU1 (PCR) Not Detected (NotDetected) Coronavirus 229E (PCR) Not Detected (NotDetected) SARS-CoV-2 (PCR) Not Detected NEGATIVE (Negative) Coronavirus NL63 (PCR) Not Detected (NotDetected) Hepatitis C Antibody (Negative) Monoscreen (Negative) HIV 1&2 Ab/P24 Ag 4thGn (Negative) Human Metapneumovir PCR Not Detected (NotDetected) Influenza Type A (PCR) Not Detected Negative (Neg) Influenza Type B (PCR) Negative (Neg) M. pneumoniae (PCR) (NotDetected) Parainfluenza 1 (PCR) (NotDetected) Parainfluenza 2 (PCR) (NotDetected) Parainfluenza 3 (PCR) (NotDetected) Parainfluenza 4 (PCR) (NotDetected) RSV (RT-PCR) (Neg) RSV (PCR) (NotDetected) Entero/Rhino (PCR) (NotDetected) Medications Administered Current Inpatient Medications Acetaminophen (Acetaminophen 325 Mg Tab) 650 mg PO Q4H PRN PRN Reason: pain/fever Stop: 07/23/25 16:46 Last Admin: 06/23/25 19:26 Dose: 650 mg Heparin Sodium (Porcine) (Heparin Sod 5,000 Unit/0.5 Ml Vial) 5,000 units SQ Q8 JOSE J Stop: 07/23/25 16:46 Last Admin: 06/24/25 05:27 Dose: 5,000 units Piperacillin Sod/Tazobactam Sod (Zosyn) 4.5 gm in 100 mls @ 25 mls/hr IV Q8H [facility]; Protocol Stop: 07/04/25 00:59 Last Infusion: 06/24/25 05:39 Dose: Infused Ondansetron HCl (Ondansetron Inj 2 Mg/Ml 2 Ml Vial) 4 mg IV Q6H PRN PRN Reason: Nausea Stop: 07/23/25 16:46 Polyethylene Glycol (Polyethylene (Miralax) 17 Gm Pack) 17 gm PO DAILY PRN PRN Reason: Constipation Stop: 07/23/25 16:46 Potassium Chloride (Potassium Chloride Crtab 20 Meq Tabcr) 40 meq PO QAM JOSE J Stop: 07/23/25 17:59 Last Admin: 06/23/25 18:16 Dose: 40 meq Potassium Phosphate (Potassium Phos 3 Mmol/1 Ml Infusion) 15 mmol IV NOW STA Stop: 06/24/25 08:17
[2025-06-24] MEDS: POTASSIUM PHOS 3 MMOL/1 ML INFUSION IV STA (08:34)
[2025-06-24] MEDS: POTASSIUM PHOSPHATE 15 MMOL in SODIUM CHLORIDE 0.9% 250 ML IV ONE (08:54)
[2025-06-24 11:33] LABS: Appearance Urine Cloudy (Clear); Bacteria Urine Automated None Seen (None Seen); Glucose Urine UA Negative (Negative); RBC Urine Automated 0-2 /hpf (0-2); WBC Urine Automated 0-5 /hpf (0-5)
[2025-06-24] MEDS: SODIUM CHLORIDE 0.9% 1,000 ML IV ONE (13:46)
[2025-06-24] MEDS: POTASSIUM CHLORIDE CRTAB 20 MEQ TABCR PO STA ×2 (14:59→15:09)
--- NOTE | 2025-06-24 15:06 | Nephrology Consultation ---
Date of Consultation June 24, 2025 Assessment & Plan (1) Acute kidney injury: baseline creat 1.3 and was 3.37 on Adx but now trending down with ivf. most current 2.84 continue NS at 125 ml/hr. renal imaging fine although presence of b/l renal calculi noted on CT. has micro hematuria and some protein in urine UA. need to repeat it again after well hydrated. hold off ARB for now. unlikely he has anything primary kidney cadet but will need nephrology f/u after discharge (2) Hypokalemia: Still severely low. his K deficit was massive and not always easy to know ahead of time. will give about 200 meq of kcl over next 24 hrs. raise kcl to 40 tid and also 40 once. has got some already but not enough. check again in evening. (3) Hyponatremia: 126 on admission and now 131. rising nicely with NS. continue same. No need to worry about rate of correction att this stage. Hypovolemic Hyponatremia--true salt defict from GI loss do renal panel twice daily. Plan time spent 61 mins History of Present Illness Reason for Consultation: CHRISTIANO and Hypokalemia Attending Physician: Aleksey Aranda MD History of Present Illness 54/m with previously no issues with lytes and normal baseline creat of 1.3, HTN on ARB/BB, no prior kidney issues. he came in with 1 week h/o Nausea, vomiting and Diarrhea and severe loss of Appetite and no food/drink. found to have k of 2.4 and CHRISTIANO with creat of 3.4. has been getting kcl but still low at 2.6 and Creat did improve and now down to 2.8. na was 126 and now upto 131 Starting to feel better--more strength, less nausea and less diarrhea. Starting to eat a bit. ROS--otherwise 12 Systems negative Physical Exam Physical Exam: Gen: A&O 3 NAD HEENT: Dry mucous membranes. Neck: Supple, no JVD Lungs: b/l Clear CV: RRR, no edema. Abdomen: Soft, nondistended, No tenderness. Skin: No rashes, petechiae, lesions. Psych: Appropriate for situation. Allergies Allergy/AdvReac Type Severity Reaction Status Date / Time No Known Allergies Allergy Unverified 06/23/25 11:14 Home Medications Medication Instructions Recorded Confirmed Type losartan 50 mg tablet 50 mg PO DAILY 06/23/25 06/23/25 History metoprolol succinate 25 mg 25 mg PO DAILY 06/23/25 06/23/25 History tablet,extended release 24 hr (Toprol XL) Patient History Medical History Hypertension Surgical History No significant past surgical history Social History Smoking Status: Never smoker Hx Alcohol Use: Yes Alcohol type: beer Hx Substance Use: No Preferred Language: Estonian Beliefs That Will Affect Care: None Current Living Situation: Parent Feels Safe at Home: Yes Results & Data Vital Signs (Past 12 Hours) Vital Signs Temp Pulse Pulse Resp BP BP Pulse Ox 06/24/25 11:30 36.3 C L 88 18 117/68 95 06/24/25 08:19 36.6 C 85 20 136/74 98 06/24/25 07:13 56 L 06/24/25 03:40 37.3 C 92 H 18 111/66 99 O2 Del Method 06/24/25 11:30 Room Air 06/24/25 08:19 Room Air 06/24/25 07:13 06/24/25 03:40 Room Air Laboratory Results reveiwed Diagnostic Findings renal US and CT
[2025-06-24 16:19] LABS: Cdiff Toxin B Gene (2yr or >) Negative Cdiff Gene (Neg)
[2025-06-24] MEDS: POTASSIUM CHLORIDE CRTAB 20 MEQ TABCR PO SCH (16:32)
[2025-06-24 16:56] LABS: Adenovirus F 40/41 PCR Not Detected (NotDetected); Campylobacter PCR Not Detected (NotDetected); Enteroaggregative E.coli(EAEC) Not Detected (NotDetected); Shiga-like Toxin E.coli (STEC) Not Detected (NotDetected); Vibrio species PCR Not Detected (NotDetected)
[2025-06-24 21:15] LABS: Anion Gap 9.0 (3-11); Blood Urea Nitrogen 48.0 mg/dl (6-23); Calcium 8.1 mg/dl (8.6-10.3); Carbon Dioxide 19.0 mmol/L (21-32); Chloride 104.0 mmol/L (98-107); Creatinine Clr Calc Pharmacy 41.3 ml/min; Glucose 122.0 mg/dl (70-99(Fasting)); Potassium 3.0 mmol/L (3.5-5.1); Sodium 132.0 mmol/L (136-145)
[2025-06-25 07:36] LABS: Hematocrit (blood only) 32.0 % (42.0-52.0); Hemoglobin 12.0 g/dL (14.0-18.0); Mean Corpuscular Hemoglobin 32.1 pg (25.0-34.0); Mean Corpuscular Volume 85.6 fL (80.0-100.0); Platelet Count 343 K/uL (130-400); RDW Standard Deviation 39.2 fL (36.4-46.3); Red Blood Count 3.74 M/uL (4.70-6.10); White Blood Count 10.36 K/ul (4.8-10.8)
[2025-06-25 07:52] LABS: Alanine Aminotransferase 46.0 U/L (7-52); Albumin Globulin Ratio 0.9 (0.9-2); Albumin Level 2.8 gm/dl (3.4-5.0); Alkaline Phosphatase 52.0 U/L (34-104); Anion Gap 10.0 (3-11); Bilirubin,Total 1.4 mg/dl (0.2-1.0); Blood Urea Nitrogen 43.0 mg/dl (6-23); Calcium 7.9 mg/dl (8.6-10.3); Carbon Dioxide 18.0 mmol/L (21-32); Chloride 104.0 mmol/L (98-107); Creatinine Clr Calc Pharmacy 43.2 ml/min; Globulin 3.2 gm/dl (2.5-4.0); Glucose 114.0 mg/dl (70-99(Fasting)); Magnesium 2.0 mg/dl (1.7-2.4); Potassium 3.0 mmol/L (3.5-5.1); Sodium 132.0 mmol/L (136-145); Total Protein 6.0 gm/dl (6.0-8.3)
[2025-06-25] MEDS ORDERED: POTASSIUM PHOS 3 MMOL/1 ML INFUSION IV STA ×2 (08:11→14:27)
--- NOTE | 2025-06-25 08:26 | Hospitalist Progress Note ---
Date of Service June 25, 2025 Assessment & Plan (1) Hypertension: (2) CKD stage 3a, GFR 45-59 ml/min: (3) GERD (gastroesophageal reflux disease): (4) Hypokalemia: (5) Acute diarrhea: (6) Sepsis: (7) Hyponatremia: Plan 54 yo male with pmhx of HTN, GERD, CKD stage 3b, class II obesity who presents for not feeling well at home 2/2 sepsis from acute diarrheal illness. #Sepsis #Acute Diarrhea -patient with acute diarrhea for past few days, nausea, and vomiting -sepsis due to leukocytosis, tachycardia with source of abdomen, benign abdomen -significant electrolyte abnormalities 2/2 poor PO intake Plan: -CT abdomen/pelvis with IV contrast given significant sepsis, diarrhea, r/o'ed abscess -blood cultures - so far no growth -lactic acid 1.3, nl -started zosyn on admission, empirically given sepsis, cont. for now -resp. biofire negat. -stool pcr, and c. diff - negative #CHRISTIANO on CKD Stage 3a #Hypovolemic Hyponatremia #Hypokalemia -likely in setting of poor PO intake, diarrhea, nausea, vomiting - Cr on admission 3.3, now down to 2.8 after IVF -baseline creatinine 1.3 Plan: -UA - negat. -renal US - normal appearing kidneys -urine osmoles 483, serum osmoles 284, urine sodium 21 -AM cortisol elev. -aggressively replenish potassium, calcium -Nephrology consulted #HTN -hold losartan, metoprolol Admission and Anticipated Discharge Date Admission Date: June 23, 2025 Subjective Pt seen in follow up CHRISTIANO, hyponatremia, elev. WBC - sepsis Presents w/ weakness, diarrhea WBC improved, Cr improved Pt lying in bed in NAD, says he feels a lot better since he came to the hospital Says he had no appetite at home and so would not eat or drink. Now says he is picky about food. Encouraged to ask for what he likes and try to increase PO intake. K still low despite aggressive replacement. reports having loose stool once a day, but no abdominal pain, does not think he had any blood in his stool. No chest pain, no shortness of breath Review of Systems Review of Systems: All systems reviewed & are unremarkable except as noted in Subjective Physical Exam Physical Exam: Gen: A&O 3 NAD HEENT: NCAT, EOMI Neck: Supple Lungs: No Respiratory distress. CV: RRR, no edema. Abdomen: Soft, nondistended, nontender MSK: moves extremities Skin: warm, dry Neuro: awake, alert, answers simple questions appropriately, moves extremities Results & Data Results & Data Vital Signs (Past 12 Hours) Vital Signs Temp Pulse Pulse Resp BP Pulse Ox O2 Del Method 06/25/25 06:52 75 06/25/25 03:33 36.9 C 90 16 118/69 98 Room Air 06/24/25 23:33 36.8 C 84 16 118/71 96 Room Air Laboratory Results 06/25/25 06/24/25 06/24/25 Range/Units 07:03 20:42 15:00 WBC 10.36 (4.8-10.8) K/ul RBC 3.74 L (4.70-6.10) M/uL Hgb 12.0 L (14.0-18.0) g/dL Hct 32.0 L (42.0-52.0) % MCV 85.6 (80.0-100.0) fL MCH 32.1 (25.0-34.0) pg MCHC 37.5 H (32.0-36.0) g/dL RDW Std Deviation 39.2 (36.4-46.3) fL RDW Coeff of Imani 12.5 (11.5-14.5) % Plt Count 343 (130-400) K/uL MPV 8.8 L (9.4-12.4) fL Sodium 132 L 132 L (136-145) mmol/L Potassium 3.0 L 3.0 L (3.5-5.1) mmol/L Chloride 104 104 (98-107) mmol/L Carbon Dioxide 18 L 19 L (21-32) mmol/L Anion Gap 10 9 (3-11) BUN 43 H 48 H (6-23) mg/dl Creatinine 2.42 H 2.54 H D (0.6-1.4) mg/dl Est Cr Clr Drug Dosing 43.2 41.3 ml/min eGFR 30.59 28.86 BUN/Creatinine Ratio 17.8 18.9 (10-20) Glucose 114 H 122 H (70-99(Fasting)) mg/dl Calcium 7.9 L 8.1 L (8.6-10.3) mg/dl Phosphorus 1.9 L 1.6 L (2.5-4.9) mg/dl Magnesium 2.0 (1.7-2.4) mg/dl Total Bilirubin 1.4 H (0.2-1.0) mg/dl AST 32 (13-39) U/L ALT 46 (7-52) U/L Alkaline Phosphatase 52 (34-104) U/L Total Protein 6.0 (6.0-8.3) gm/dl Albumin 2.8 L (3.4-5.0) gm/dl Globulin 3.2 (2.5-4.0) gm/dl Albumin/Globulin Ratio 0.9 (0.9-2) Urine Color Urine Appearance (Clear) Urine pH (4.5-7.5) Ur Specific [place] (1.000-1.030) Urine Protein (Negative) Urine Glucose (UA) (Negative) Urine Ketones (Negative) Urine Blood (Negative) Urine Nitrite (Negative) Urine Bilirubin (Negative) Urine Urobilinogen (Negative) Ur Leukocyte Esterase (Negative) Urine WBC (Auto) (0-5) /hpf Urine RBC (Auto) (0-2) /hpf U Hyaline Cast (Auto) (0-2) /lpf U Epithel Cells (Auto) (0-2) /hpf Urine Bacteria (Auto) (None Seen) Urine Osmolality (500-800) mOsm/kg Ur Random Sodium mmol/L Urine Comment Stl C. cayetanensis PCR Not Detected (NotDetected) Stool Rotavirus A PCR Not Detected (NotDetected) Stl Adenov F 40/41 PCR Not Detected (NotDetected) Stool Astrovirus (PCR) Not Detected (NotDetected) Stool Campylobacter PCR Not Detected (NotDetected) Stl C. diff Tox B Gene Negative Cdiff Gene (Neg) Stl C. diff 027-NAP1-BI NEGATIVE Stool Cryptosporidium PCR Not Detected (NotDetected) Stl E.coli Shiga Tox PCR Not Detected (NotDetected) Stl Enterotoxigenic E PCR Not Detected (NotDetected) Stool EPEC (PCR) Not Detected (NotDetected) Stool EAEC (PCR) Not Detected (NotDetected) Stl E. histolytica PCR Not Detected (NotDetected) Stool Giardia Lamblia PCR Not Detected (NotDetected) Stool Salmonella PCR Not Detected (NotDetected) Stool Sapovirus (PCR) Not Detected (NotDetected) Stl P. shigelloides PCR Not Detected (NotDetected) Stl Shigella/EIEC PCR Not Detected (NotDetected) St Y.enterocolitica PCR Not Detected (NotDetected) Stool Vibrio (PCR) Not Detected (NotDetected) Stl Vibrio cholerae PCR Not Detected (NotDetected) Stl Norovirus GI/GII PCR Not Detected (NotDetected) 06/24/25 Range/Units 10:50 WBC (4.8-10.8) K/ul RBC (4.70-6.10) M/uL Hgb (14.0-18.0) g/dL Hct (42.0-52.0) % MCV (80.0-100.0) fL MCH (25.0-34.0) pg MCHC (32.0-36.0) g/dL RDW Std Deviation (36.4-46.3) fL RDW Coeff of Imani (11.5-14.5) % Plt Count (130-400) K/uL MPV (9.4-12.4) fL Sodium (136-145) mmol/L Potassium (3.5-5.1) mmol/L Chloride (98-107) mmol/L Carbon Dioxide (21-32) mmol/L Anion Gap (3-11) BUN (6-23) mg/dl Creatinine (0.6-1.4) mg/dl Est Cr Clr Drug Dosing ml/min eGFR BUN/Creatinine Ratio (10-20) Glucose (70-99(Fasting)) mg/dl Calcium (8.6-10.3) mg/dl Phosphorus (2.5-4.9) mg/dl Magnesium (1.7-2.4) mg/dl Total Bilirubin (0.2-1.0) mg/dl AST (13-39) U/L ALT (7-52) U/L Alkaline Phosphatase (34-104) U/L Total Protein (6.0-8.3) gm/dl Albumin (3.4-5.0) gm/dl Globulin (2.5-4.0) gm/dl Albumin/Globulin Ratio (0.9-2) Urine Color Yellow Urine Appearance Cloudy A (Clear) Urine pH 5.0 (4.5-7.5) Ur Specific [place] 1.023 (1.000-1.030) Urine Protein 1+ H (Negative) Urine Glucose (UA) Negative (Negative) Urine Ketones Negative (Negative) Urine Blood 1+ H (Negative) Urine Nitrite Negative (Negative) Urine Bilirubin Negative (Negative) Urine Urobilinogen Negative (Negative) Ur Leukocyte Esterase Negative (Negative) Urine WBC (Auto) 0-5 (0-5) /hpf Urine RBC (Auto) 0-2 (0-2) /hpf U Hyaline Cast (Auto) 3-5 H (0-2) /lpf U Epithel Cells (Auto) 3-5 H (0-2) /hpf Urine Bacteria (Auto) None Seen (None Seen) Urine Osmolality 483 L (500-800) mOsm/kg Ur Random Sodium 21 mmol/L Urine Comment Stl C. cayetanensis PCR (NotDetected) Stool Rotavirus A PCR (NotDetected) Stl Adenov F 40/41 PCR (NotDetected) Stool Astrovirus (PCR) (NotDetected) Stool Campylobacter PCR (NotDetected) Stl C. diff Tox B Gene (Neg) Stl C. diff 027-NAP1-BI Stool Cryptosporidium PCR (NotDetected) Stl E.coli Shiga Tox PCR (NotDetected) Stl Enterotoxigenic E PCR (NotDetected) Stool EPEC (PCR) (NotDetected) Stool EAEC (PCR) (NotDetected) Stl E. histolytica PCR (NotDetected) Stool Giardia Lamblia PCR (NotDetected) Stool Salmonella PCR (NotDetected) Stool Sapovirus (PCR) (NotDetected) Stl P. shigelloides PCR (NotDetected) Stl Shigella/EIEC PCR (NotDetected) St Y.enterocolitica PCR (NotDetected) Stool Vibrio (PCR) (NotDetected) Stl Vibrio cholerae PCR (NotDetected) Stl Norovirus GI/GII PCR (NotDetected) Medications Administered Current Inpatient Medications Acetaminophen (Acetaminophen 325 Mg Tab) 650 mg PO Q4H PRN PRN Reason: pain/fever Stop: 07/23/25 16:46 Last Admin: 06/23/25 19:26 Dose: 650 mg Heparin Sodium (Porcine) (Heparin Sod 5,000 Unit/0.5 Ml Vial) 5,000 units SQ Q8 JOSE J Stop: 07/23/25 16:46 Last Admin: 06/25/25 05:14 Dose: 5,000 units Piperacillin Sod/Tazobactam Sod (Zosyn) 4.5 gm in 100 mls @ 25 mls/hr IV Q8H [facility]; Protocol Stop: 07/04/25 00:59 Last Admin: 06/25/25 08:19 Dose: 25 mls/hr Potassium Phosphate 15 mmol/ (Sodium Chloride) 255 mls @ 88 mls/hr IV ONE ONE Stop: 06/25/25 11:23 Ondansetron HCl (Ondansetron Inj 2 Mg/Ml 2 Ml Vial) 4 mg IV Q6H PRN PRN Reason: Nausea Stop: 07/23/25 16:46 Polyethylene Glycol (Polyethylene (Miralax) 17 Gm Pack) 17 gm PO DAILY PRN PRN Reason: Constipation Stop: 07/23/25 16:46 Potassium Chloride (Potassium Chloride Crtab 20 Meq Tabcr) 40 meq PO TID JOSE J Stop: 07/24/25 15:59 Last Admin: 06/25/25 08:19 Dose: 40 meq
[2025-06-25] MEDS: POTASSIUM PHOSPHATE 15 MMOL in SODIUM CHLORIDE 0.9% 250 ML IV ONE (08:58)
--- NOTE | 2025-06-25 14:30 | Nephrology Progress Note ---
Date of Service June 25, 2025 Assessment & Plan Admission and Anticipated Discharge Date Admission Date: June 23, 2025 Subjective Assessment & Plan (1) Acute kidney injury: baseline creat 1.3 and was 3.37 on Adx but now trending down with ivf. most current 2.4 so some slowing down of improvement. continue NS at 80 ml/hr. renal imaging fine although presence of b/l renal calculi noted on CT. has micro hematuria and some protein in urine UA. need to repeat it again after well hydrated. hold off ARB for now. unlikely he has anything primary kidney cadet but will need nephrology f/u after discharge (2) Hypokalemia: Still very low. his K deficit was massive and not always easy to know ahead of time. will give about 200 meq of kcl over next 24 hrs. kcl to 40 tid and also 40 once x 1 now. Also give kphos 30 mmol now. check again in evening. (3) Hyponatremia: 126 on admission and now 132. rising nicely with NS. continue same. No need to worry about rate of correction att this stage. Hypovolemic Hyponatremia--true salt defict from GI loss do renal panel twice daily. S--no new issues. getting better ROS--otherwise 12 Systems negative Physical Exam Physical Exam: Gen: A&O 3 NAD HEENT: Dry mucous membranes. Neck: Supple, no JVD Lungs: b/l Clear CV: RRR, no edema. Abdomen: Soft, nondistended, No tenderness. Skin: No rashes, petechiae, lesions. Psych: Appropriate for situation. Results & Data Vital Signs (Past 12 Hours) Vital Signs Temp Pulse Pulse Resp BP BP Pulse Ox 06/25/25 14:16 70 06/25/25 11:45 36.7 C 68 18 128/76 99 06/25/25 08:47 37.1 C 81 19 135/74 97 06/25/25 06:52 75 06/25/25 03:33 36.9 C 90 16 118/69 98 O2 Del Method 06/25/25 14:16 06/25/25 11:45 Room Air 06/25/25 08:47 Room Air 06/25/25 06:52 06/25/25 03:33 Room Air
[2025-06-25] MEDS: POTASSIUM CHLORIDE CRTAB 20 MEQ TABCR PO STA (14:58)
[2025-06-25] MEDS: POTASSIUM PHOSPHATE 30 MMOL in SODIUM CHLORIDE 0.9% 500 ML IV ONE (14:59)
[2025-06-25] MEDS: SODIUM CHLORIDE 0.9% 1,000 ML IV SCH (14:59)
[2025-06-25 20:38] LABS: Anion Gap 8.0 (3-11); Blood Urea Nitrogen 36.0 mg/dl (6-23); Calcium 7.9 mg/dl (8.6-10.3); Carbon Dioxide 19.0 mmol/L (21-32); Chloride 109.0 mmol/L (98-107); Creatinine Clr Calc Pharmacy 46.6 ml/min; Glucose 126.0 mg/dl (70-99(Fasting)); Potassium 3.7 mmol/L (3.5-5.1); Sodium 136.0 mmol/L (136-145)
[2025-06-26] MEDS: HYDROmorphone INJ 0.5 MG/0.5 ML SYR IV STA (06:10)
--- NOTE | 2025-06-26 06:28 | CT Scan Report ---
EXAM: CT abd pelvis wo con CLINICAL HISTORY: RLQ abd pain TECHNIQUE: Non-contrast CT of the abdomen and pelvis was performed, with the following protocol: axial images, and reconstructed coronal and sagittal images. One of the following dose reduction techniques was utilized for this exam: Automated exposure control, adjustment of the mA and/or kV according to patient size, and use of iterative reconstruction. COMPARISON: 06/23/2025. FINDINGS: Abdomen: Liver: The liver is normal in size, contour, and attenuation with no imaging features of cirrhosis or significant fatty infiltration. Several simple hepatic cysts are noted, measuring up to 2.6 cm. No solid hepatic mass is identified. Gallbladder and Biliary System: The gallbladder is unremarkable. No gallstones, wall thickening, pericholecystic fluid, or biliary ductal dilatation is identified. Pancreas: The pancreas demonstrates normal size and attenuation with preserved morphology. No focal mass or features of acute or chronic pancreatitis are seen. The pancreatic duct is normal in caliber. Spleen: The spleen is enlarged, measuring up to 14.5 cm in craniocaudal length. No focal splenic lesion is identified. A small soft-tissue nodule near the splenic hilum is noted, consistent with a splenule. Adrenal Glands: Both adrenal glands are unremarkable. Kidneys and Urinary Tract: Both kidneys are normal in size and position with preserved cortical thickness. Bilateral nonobstructing renal calculi are present, measuring up to 3 mm, with mild nonspecific perinephric fat stranding. No hydronephrosis or renal mass is identified. No distal ureteral or urinary bladder calculi are seen. Abdominal Aorta and Vessels: The abdominal aorta and iliac arteries are normal in caliber. No aneurysm is identified. Gastrointestinal Tract: The stomach appears normal. Small and large bowel loops are unremarkable with no evidence of obstruction or wall thickening. The appendix is normal in appearance. Peritoneal and Retroperitoneal Structures: No free intraperitoneal fluid or air is identified. No abdominal or pelvic lymphadenopathy is seen. Pelvis: The urinary bladder demonstrates normal contour and wall thickness with no intraluminal mass. No pelvic adenopathy is noted. Small bilateral inguinal hernias containing only fat are present. The prostate is unremarkable . Lung Bases: The visualized lung bases are clear. Bones and Soft Tissues: Mild thoracolumbar degenerative disc disease is present. No acute fracture or focal osseous lesion is identified. IMPRESSION: 1. No acute intra-abdominal pathology identified. 2. Bilateral nonobstructing renal calculi (up to 3 mm) without hydronephrosis. Mild nonspecific perinephric fat stranding. 3. Splenomegaly (14.5 cm). 4. Multiple simple hepatic cysts, the largest measuring 2.6 cm. 5. Small bilateral fat-containing inguinal hernias. No signs of complications. 6. No significant interval changes. Electronically signed by Boris Carlson 06-26-2025 06:28 AM
[2025-06-26] MEDS ORDERED: POTASSIUM PHOS 3 MMOL/1 ML INFUSION IV STA ×2 (07:37→11:15)
--- NOTE | 2025-06-26 07:53 | Hospitalist Progress Note ---
Date of Service June 26, 2025 Assessment & Plan (1) Hypertension: (2) CKD stage 3a, GFR 45-59 ml/min: (3) GERD (gastroesophageal reflux disease): (4) Hypokalemia: (5) Acute diarrhea: (6) Sepsis: (7) Hyponatremia: Plan 54 yo male with pmhx of HTN, GERD, CKD stage 3b, class II obesity who presents for not feeling well at home 2/2 sepsis from acute diarrheal illness. #Sepsis #Acute Diarrhea -patient with acute diarrhea for past few days, nausea, and vomiting -sepsis due to leukocytosis, tachycardia with source of abdomen, benign abdomen -significant electrolyte abnormalities 2/2 poor PO intake Plan: -CT abdomen/pelvis with IV contrast given significant sepsis, diarrhea, r/o'ed abscess -blood cultures - so far no growth -lactic acid 1.3, nl -started zosyn on admission, empirically given sepsis, cont. for now -resp. biofire negat. -stool pcr, and c. diff - negative 06/26 [place] better overall over past 2 days, then spiked fever again overnight. RLQ pain that was severe and lasted for about 15 min -> CT abdomen repeated. Pt currently on zosyn. Will discuss further w/ ID CT a/p 1. No acute intra-abdominal pathology identified. 2. Bilateral nonobstructing renal calculi (up to 3 mm) without hydronephrosis. Mild nonspecific perinephric fat stranding. 3. Splenomegaly (14.5 cm). 4. Multiple simple hepatic cysts, the largest measuring 2.6 cm. 5. Small bilateral fat-containing inguinal hernias. No signs of complications. 6. No significant interval changes. #CHRISTIANO on CKD Stage 3a #Hypovolemic Hyponatremia #Hypokalemia -likely in setting of poor PO intake, diarrhea, nausea, vomiting - Cr on admission 3.3, now down to 1.9 after IVF (06/26/2025) -baseline creatinine 1.3 Plan: -UA - negat. -renal US - normal appearing kidneys -urine osmoles 483, serum osmoles 284, urine sodium 21 -AM cortisol elev. -aggressively replenish potassium, calcium -Nephrology consulted and following closely #HTN -hold losartan, metoprolol Admission and Anticipated Discharge Date Admission Date: June 23, 2025 Subjective Pt seen in follow up CHRISTIANO, hyponatremia, elev. WBC - sepsis Presents w/ weakness, diarrhea WBC improved, Cr improved Pt lying in bed in NAD, last 2 days said felt a lot better since he came to the hospital Says he had no appetite at home and so would not eat or drink. Says he is picky about food. K found very low, in addition to hyponatremia reports having loose stool once a day, but no abdominal pain, does not think he had any blood in his stool. No chest pain, no shortness of breath 06/26 Now fever again overnight and reported RLQ pain that was severe and lasted for about 15 min -> CT abdomen repeated. Pt currently on zosyn Review of Systems Review of Systems: All systems reviewed & are unremarkable except as noted in Subjective Physical Exam Physical Exam: Gen: A&O 3 NAD HEENT: NCAT, EOMI Neck: Supple Lungs: No Respiratory distress. CV: RRR, no edema. Abdomen: Soft, nondistended, nontender MSK: moves extremities Skin: warm, dry Neuro: awake, alert, answers simple questions appropriately, moves extremities Results & Data Results & Data Vital Signs (Past 12 Hours) Vital Signs Temp Pulse Pulse Resp BP Pulse Ox O2 Del Method 06/26/25 03:46 36.6 C 89 18 133/78 98 Room Air 06/26/25 01:04 36.8 C 71 20 116/76 97 Room Air 06/25/25 21:47 73 06/25/25 21:45 36.8 C 06/25/25 20:05 39.4 C H 95 H 20 136/68 96 Room Air Laboratory Results 06/25/25 06/25/25 06/25/25 Range/Units 20:03 19:32 07:03 Sodium 136 132 L (136-145) mmol/L Potassium 3.7 D 3.0 L (3.5-5.1) mmol/L Chloride 109 H 104 (98-107) mmol/L Carbon Dioxide 19 L 18 L (21-32) mmol/L Anion Gap 8 10 (3-11) BUN 36 H 43 H (6-23) mg/dl Creatinine 2.24 H 2.42 H (0.6-1.4) mg/dl Est Cr Clr Drug Dosing 46.6 43.2 ml/min eGFR 33.56 30.59 BUN/Creatinine Ratio 16.1 17.8 (10-20) Glucose 126 H 114 H (70-99(Fasting)) mg/dl Calcium 7.9 L 7.9 L (8.6-10.3) mg/dl Phosphorus 2.4 L 1.9 L (2.5-4.9) mg/dl Magnesium 2.0 (1.7-2.4) mg/dl Total Bilirubin 1.4 H (0.2-1.0) mg/dl AST 32 (13-39) U/L ALT 46 (7-52) U/L Alkaline Phosphatase 52 (34-104) U/L Total Protein 6.0 (6.0-8.3) gm/dl Albumin 2.8 L (3.4-5.0) gm/dl Globulin 3.2 (2.5-4.0) gm/dl Albumin/Globulin Ratio 0.9 (0.9-2) Nasal Screen MRSA (PCR) Negative (Negative) Medications Administered Current Inpatient Medications Acetaminophen (Acetaminophen 325 Mg Tab) 650 mg PO Q4H PRN PRN Reason: pain/fever Stop: 07/23/25 16:46 Last Admin: 06/25/25 19:16 Dose: 650 mg Heparin Sodium (Porcine) (Heparin Sod 5,000 Unit/0.5 Ml Vial) 5,000 units SQ Q8 JOSE J Stop: 07/23/25 16:46 Last Admin: 06/26/25 05:55 Dose: Not Given Piperacillin Sod/Tazobactam Sod (Zosyn) 4.5 gm in 100 mls @ 25 mls/hr IV Q8H [facility]; Protocol Stop: 07/04/25 00:59 Last Infusion: 06/26/25 05:19 Dose: Infused Sodium Chloride (Nss) 1,000 mls @ 80 mls/hr IV .[id number] [facility] Stop: 06/28/25 14:29 Last Admin: 06/26/25 03:25 Dose: 80 mls/hr Potassium Phosphate 9 mmol/ (Sodium Chloride) 253 mls @ 88 mls/hr IV ONE ONE Stop: 06/26/25 10:37 Ondansetron HCl (Ondansetron Inj 2 Mg/Ml 2 Ml Vial) 4 mg IV Q6H PRN PRN Reason: Nausea Stop: 07/23/25 16:46 Polyethylene Glycol (Polyethylene (Miralax) 17 Gm Pack) 17 gm PO DAILY PRN PRN Reason: Constipation Stop: 07/23/25 16:46 Potassium Chloride (Potassium Chloride Crtab 20 Meq Tabcr) 40 meq PO TID JOSE J Stop: 07/24/25 15:59 Last Admin: 06/25/25 21:46 Dose: 40 meq
[2025-06-26 08:42] LABS: Hematocrit (blood only) 32.9 % (42.0-52.0); Hemoglobin 12.0 g/dL (14.0-18.0); Mean Corpuscular Hemoglobin 31.8 pg (25.0-34.0); Mean Corpuscular Volume 87.3 fL (80.0-100.0); Platelet Count 341 K/uL (130-400); RDW Standard Deviation 41.1 fL (36.4-46.3); Red Blood Count 3.77 M/uL (4.70-6.10); White Blood Count 9.05 K/ul (4.8-10.8)
[2025-06-26 09:04] LABS: Alanine Aminotransferase 48.0 U/L (7-52); Albumin Globulin Ratio 0.8 (0.9-2); Albumin Level 2.7 gm/dl (3.4-5.0); Alkaline Phosphatase 53.0 U/L (34-104); Anion Gap 9.0 (3-11); Bilirubin,Total 1.0 mg/dl (0.2-1.0); Blood Urea Nitrogen 31.0 mg/dl (6-23); Calcium 7.9 mg/dl (8.6-10.3); Carbon Dioxide 17.0 mmol/L (21-32); Chloride 109.0 mmol/L (98-107); Creatinine Clr Calc Pharmacy 55.2 ml/min; Globulin 3.2 gm/dl (2.5-4.0); Glucose 113.0 mg/dl (70-99(Fasting)); Magnesium 1.8 mg/dl (1.7-2.4); Potassium 3.6 mmol/L (3.5-5.1); Sodium 135.0 mmol/L (136-145); Total Protein 5.9 gm/dl (6.0-8.3)
[2025-06-26] MEDS: POTASSIUM PHOSPHATE 9 MMOL in SODIUM CHLORIDE 0.9% 250 ML IV ONE (09:04)
--- NOTE | 2025-06-26 11:18 | Nephrology Progress Note ---
Date of Service June 26, 2025 Assessment & Plan Admission and Anticipated Discharge Date Admission Date: June 23, 2025 Subjective Assessment & Plan (1) Acute kidney injury: baseline creat 1.3 and was 3.37 on Adx but now trending down with ivf. most current 1.9 so did have improvement. Can stop ivf now. renal imaging fine although presence of b/l renal calculi noted on CT. has micro hematuria and some protein in urine UA. need to repeat it again after well hydrated. hold off ARB for now. unlikely he has anything primary kidney cadet but will need nephrology f/u after discharge. Phos low at 1.9 even after getting so muck kphos. give another 30mmol kphos. (2) Hypokalemia: Now low normal. lower kcl to 40 bid. Also give kphos 30 mmol now. check again in evening. (3) Hyponatremia: 126 on admission and now 135. rising nicely with NS. No need to worry about rate of correction att this stage. Hypovolemic Hyponatremia--true salt defict from GI loss do renal panel daily. S--no new issues. getting better. Vital signs are good. Making urine ROS--otherwise 12 Systems negative Physical Exam Physical Exam: Gen: A&O 3 NAD HEENT: Dry mucous membranes. Neck: Supple, no JVD Lungs: b/l Clear CV: RRR, no edema. Abdomen: Soft, nondistended, No tenderness. Skin: No rashes, petechiae, lesions. Psych: Appropriate for situation. Results & Data Vital Signs (Past 12 Hours) Vital Signs Temp Pulse Resp BP BP Pulse Ox O2 Del Method 06/26/25 07:49 36.6 C 82 16 144/76 H 98 Room Air 06/26/25 03:46 36.6 C 89 18 133/78 98 Room Air 06/26/25 01:04 36.8 C 71 20 116/76 97 Room Air
[2025-06-26] MEDS: POTASSIUM PHOSPHATE 30 MMOL in SODIUM CHLORIDE 0.9% 500 ML IV ONE (12:28)
[2025-06-26] MEDS: POTASSIUM CHLORIDE CRTAB 20 MEQ TABCR PO SCH (20:11)
[2025-06-26] MEDS: MELATONIN 3 MG TAB PO SCH (20:11)
[2025-06-27 06:39] LABS: Hematocrit (blood only) 31.4 % (42.0-52.0); Hemoglobin 11.3 g/dL (14.0-18.0); Mean Corpuscular Hemoglobin 32.0 pg (25.0-34.0); Mean Corpuscular Volume 89.0 fL (80.0-100.0); Platelet Count 371 K/uL (130-400); RDW Standard Deviation 43.1 fL (36.4-46.3); Red Blood Count 3.53 M/uL (4.70-6.10); White Blood Count 10.73 K/ul (4.8-10.8)
[2025-06-27 06:56] LABS: Anion Gap 10.0 (3-11); Blood Urea Nitrogen 22.0 mg/dl (6-23); Calcium 7.8 mg/dl (8.6-10.3); Carbon Dioxide 16.0 mmol/L (21-32); Chloride 109.0 mmol/L (98-107); Creatinine Clr Calc Pharmacy 55.1 ml/min; Glucose 112.0 mg/dl (70-99(Fasting)); Magnesium 1.6 mg/dl (1.7-2.4); Potassium 3.7 mmol/L (3.5-5.1); Sodium 135.0 mmol/L (136-145)
[2025-06-27] MEDS: MAGNESIUM SULFATE / D5W 1 GM/100 ML BAG IV ONE (08:08)
--- NOTE | 2025-06-27 10:57 | Nephrology Progress Note ---
Date of Service June 27, 2025 Assessment & Plan Admission and Anticipated Discharge Date Admission Date: June 23, 2025 Subjective Assessment & Plan (1) Acute kidney injury: baseline creat 1.3 and was 3.37 on Adx but now trending down with ivf. most current 1.9 so did have improvement. Can stop ivf now. renal imaging fine although presence of b/l renal calculi noted on CT--not new has micro hematuria and some protein in urine UA. need to repeat it again after well hydrated--has renal stone to cause this. Check uine PCR and UA at hospital f/u hold off ARB for now. unlikely he has anything primary kidney cadet but will need nephrology f/u after discharge. Phos low at 1.9 even after getting so muck kphos. give another 30mmol kphos. (2) Hypokalemia: Now low normal. lower kcl to 20 bid. Also add Slow mg 64 once daily. give iv mag 2 gm today. (3) Hyponatremia: 126 on admission and now 135. Hypovolemic Hyponatremia--true salt defict from GI loss do renal panel daily. At Discharge: 1hold off ARB/ZOE till seen by nephrology. 2 Add kcl 20 bid and slow mag 64 daily for discharge 3 nephrology f/u within 1-2 week. Needs CBC, renal paanel, UA, urine PCR and urine ACR through nephrology nurisng. S--no new issues. getting better. Vital signs are good. Making urine ROS--otherwise 12 Systems negative Physical Exam Physical Exam: Gen: A&O 3 NAD HEENT: Dry mucous membranes. Neck: Supple, no JVD Lungs: b/l Clear CV: RRR, no edema. Abdomen: Soft, nondistended, No tenderness. Skin: No rashes, petechiae, lesions. Psych: Appropriate for situation. Results & Data Vital Signs (Past 12 Hours) Vital Signs Temp Pulse Pulse Resp BP BP Pulse Ox 06/27/25 08:41 36.4 C L 85 17 147/75 H 98 06/27/25 05:35 87 06/27/25 02:44 36.6 C 82 18 143/80 H 97 O2 Del Method 06/27/25 08:41 Room Air 06/27/25 05:35 06/27/25 02:44 Room Air
[2025-06-27] MEDS: MAGNESIUM SULFATE / D5W 1 GM/100 ML BAG IV SCH (11:14)
[2025-06-27] MEDS: MAGNESIUM CHLORIDE W/CALCIUM 64MG DELAYED REL TAB PO SCH (11:14)
--- NOTE | 2025-06-27 12:12 | Infectious Disease Consult ---
Date of Service June 27, 2025 Telehealth Information I performed this visit using a real-time telehealth connection between my location and the patients location ([facility]). After connecting through interactive tele-video, patient was identified by name and date of and/or wristband check.Patient (or authorized healthcare associate sales representative) was informed that this was a telemedicine visit and it was being conducted confidentially over secure lines. My office door was closed and no one else was present in the room with me.Patient (or authorized healthcare associate sales representative) provided consent to proceed with the visit, expressed an understanding of privacy and security of the telemedicine visit, and gave permission to have a hospital associate sales representative in the room in order to assist with the visit and to conduct portions of the visit, as needed. I informed the patient (or authorized healthcare associate sales representative) that I reviewed their record and presented the opportunity for them to ask any questions regarding the visit today. The patient agreed to participate. Assessment & Plan (1) Acute diarrhea: (2) Sepsis: (3) Weakness: (4) Acute kidney injury: Plan At this point, with negative workup so far, negative blood Cx and only 1 reported fever in the chart from the night of 06/25, I would assume that the illness is viral in nature. Therefore, I would recommend stopping IV Zosyn and monitoring off antibiotics for today. History of Present Illness History of Present Illness A 54-year-old man with past medical history of HTN, CKD stage IIIB, and obesity who was admitted to [facility] on 06/23 because of generalized weakness and feeling unwell for around 5 days prior to presentation. The illness was mainly associated with nausea, vomiting and diarrhea. On presentation, he was afebrile but tachycardic at 118; the rest of the vitals were within normal limits. During the current admission, he had only 1 reported episode of fever of 39.4 during the night of 06/25/2025. Initial workup showed leukocytosis of 19.6 (ANC 17), hyponatremia of 129, hypokalemia of 2.6, elevated creatinine of 3.3, negative respiratory viral panel, negative RVP panel, negative HIV and mono screen. CT abdomen pelvis was performed which showed hepatic and right renal cysts with splenomegaly and bilateral renal calculi but no acute pathologies. ID team was consulted for further recommendations and to help guide antibiotic treatment. Allergies Allergy/AdvReac Type Severity Reaction Status Date / Time No Known Allergies Allergy Unverified 06/23/25 11:14 Home Medications Medication Instructions Recorded Confirmed Type losartan 50 mg tablet 50 mg PO DAILY 06/23/25 06/23/25 History metoprolol succinate 25 mg 25 mg PO DAILY 06/23/25 06/23/25 History tablet,extended release 24 hr (Toprol XL) Patient History Medical History Hypertension Surgical History No significant past surgical history Social History Smoking Status: Never smoker Hx Alcohol Use: Yes Alcohol type: beer Hx Substance Use: No Preferred Language: Stateless Communication Ability: Effective Beliefs That Will Affect Care: None Current Living Situation: Parent Feels Safe at Home: Yes Assistive Devices: Cane and Walker Review of Systems Negative except for what was mentioned in the H&P. Physical Exam Could not be performed as the visit was conducted via TeleMed. Results & Data Vital Signs (Past 12 Hours) Vital Signs Temp Pulse Pulse Resp BP BP Pulse Ox 06/27/25 08:41 36.4 C L 85 17 147/75 H 98 06/27/25 05:35 87 06/27/25 02:44 36.6 C 82 18 143/80 H 97 O2 Del Method 06/27/25 08:41 Room Air 06/27/25 05:35 06/27/25 02:44 Room Air Laboratory Results Microbiology: 06/23: 2 sets of blood culture negative to date Diagnostic Findings Imaging: CT scan abdomen pelvis performed on 06/23: 1. Hepatic and right renal cysts 2. Splenomegaly 3. Bilateral renal calculi 4. Small bilateral inguinal hernias containing fat
--- NOTE | 2025-06-27 18:11 | Hospitalist Progress Note ---
Date of Service June 27, 2025 Assessment & Plan (1) Hypertension: (2) CKD stage 3a, GFR 45-59 ml/min: (3) GERD (gastroesophageal reflux disease): (4) Hypokalemia: (5) Acute diarrhea: (6) Sepsis: (7) Hyponatremia: Plan 54 yo male with pmhx of HTN, GERD, CKD stage 3b, class II obesity who presents for not feeling well at home 2/2 sepsis from acute diarrheal illness. #Sepsis #Acute Diarrhea -patient with acute diarrhea for past few days, nausea, and vomiting -sepsis due to leukocytosis, tachycardia with source of abdomen, benign abdomen -significant electrolyte abnormalities 2/2 poor PO intake Plan: -CT abdomen/pelvis with IV contrast given significant sepsis, diarrhea, r/o'ed abscess -blood cultures - so far no growth -lactic acid 1.3, nl -started zosyn on admission, empirically given sepsis, conttinued --> will stop now after discussing w/ ID (06/27) -resp. biofire negat. -stool pcr, and c. diff - negative 06/26 [place] better overall over past 2 days, then spiked fever again overnight. RLQ pain that was severe and lasted for about 15 min -> CT abdomen repeated. Pt currently on zosyn. Will discuss further w/ ID CT a/p 1. No acute intra-abdominal pathology identified. 2. Bilateral nonobstructing renal calculi (up to 3 mm) without hydronephrosis. Mild nonspecific perinephric fat stranding. 3. Splenomegaly (14.5 cm). 4. Multiple simple hepatic cysts, the largest measuring 2.6 cm. 5. Small bilateral fat-containing inguinal hernias. No signs of complications. 6. No significant interval changes. 06/27 ID consulted - will stop zosyn and will cont. to observe off antibiotics #CHRISTIANO on CKD Stage 3a #Hypovolemic Hyponatremia #Hypokalemia -likely in setting of poor PO intake, diarrhea, nausea, vomiting - Cr on admission 3.3, now down to 1.9 after IVF (06/26-) -baseline creatinine 1.3 Plan: -UA - negat. -renal US - normal appearing kidneys -urine osmoles 483, serum osmoles 284, urine sodium 21 -AM cortisol elev. -aggressively replenish potassium, calcium -Nephrology consulted and following closely #HTN -hold losartan, metoprolol Admission and Anticipated Discharge Date Admission Date: June 23, 2025 Subjective Pt seen in follow up CHRISTIANO, hyponatremia, elev. WBC - sepsis Presents w/ weakness, diarrhea WBC improved, Cr improved Pt lying in bed in NAD Still not eating/ drinking much reports having loose stool once a day, but no abdominal pain, does not think he had any blood in his stool. No chest pain, no shortness of breath 06/26 Now fever again overnight and reported RLQ pain that was severe and lasted for about 15 min -> CT abdomen repeated, unremarkable. Pt currently on zosyn Discussed w/ ID today -> will stop zosyn and observe off antibiotics Review of Systems Review of Systems: All systems reviewed & are unremarkable except as noted in Subjective Physical Exam Physical Exam: Gen: A&O 3 NAD HEENT: NCAT, EOMI Neck: Supple Lungs: No Respiratory distress. CV: RRR, no edema. Abdomen: Soft, nondistended, nontender MSK: moves extremities Skin: warm, dry Neuro: awake, alert, answers simple questions appropriately, moves extremities Results & Data Results & Data Vital Signs (Past 12 Hours) Vital Signs Temp Pulse Pulse Resp BP BP Pulse Ox 06/27/25 15:17 37.0 C 83 18 163/81 H 98 06/27/25 13:55 76 06/27/25 12:26 36.3 C L 57 L 18 151/80 H 100 06/27/25 08:41 36.4 C L 85 17 147/75 H 98 O2 Del Method 06/27/25 15:17 Room Air 06/27/25 13:55 06/27/25 12:26 Room Air 06/27/25 08:41 Room Air Laboratory Results 06/27/25 Range/Units 05:37 WBC 10.73 (4.8-10.8) K/ul RBC 3.53 L (4.70-6.10) M/uL Hgb 11.3 L (14.0-18.0) g/dL Hct 31.4 L (42.0-52.0) % MCV 89.0 (80.0-100.0) fL MCH 32.0 (25.0-34.0) pg MCHC 36.0 (32.0-36.0) g/dL RDW Std Deviation 43.1 (36.4-46.3) fL RDW Coeff of Imani 13.2 (11.5-14.5) % Plt Count 371 (130-400) K/uL MPV 8.4 L (9.4-12.4) fL Sodium 135 L (136-145) mmol/L Potassium 3.7 (3.5-5.1) mmol/L Chloride 109 H (98-107) mmol/L Carbon Dioxide 16 L (21-32) mmol/L Anion Gap 10 (3-11) BUN 22 (6-23) mg/dl Creatinine 1.93 H (0.6-1.4) mg/dl Est Cr Clr Drug Dosing 55.1 ml/min eGFR 40.13 BUN/Creatinine Ratio 11.4 (10-20) Glucose 112 H (70-99(Fasting)) mg/dl Calcium 7.8 L (8.6-10.3) mg/dl Phosphorus 2.5 (2.5-4.9) mg/dl Magnesium 1.6 L (1.7-2.4) mg/dl Medications Administered Current Inpatient Medications Acetaminophen (Acetaminophen 325 Mg Tab) 650 mg PO Q4H PRN PRN Reason: pain/fever Stop: 07/23/25 16:46 Last Admin: 06/25/25 19:16 Dose: 650 mg Heparin Sodium (Porcine) (Heparin Sod 5,000 Unit/0.5 Ml Vial) 5,000 units SQ Q8 [facility] Stop: 07/23/25 16:46 Last Admin: 06/27/25 13:03 Dose: 5,000 units Piperacillin Sod/Tazobactam Sod (Zosyn) 4.5 gm in 100 mls @ 25 mls/hr IV Q8H [facility]; Protocol Stop: 07/04/25 00:59 Last Admin: 06/27/25 17:23 Dose: 25 mls/hr Magnesium Chloride (Magnesium Chloride W/Calcium 64mg Delayed Rel Tab) 64 mg PO QAM [facility] Stop: 07/27/25 10:59 Last Admin: 06/27/25 11:14 Dose: 64 mg Melatonin (Melatonin 3 Mg Tab) 6 mg PO HS [facility] Stop: 07/26/25 20:59 Last Admin: 06/26/25 20:11 Dose: 6 mg Ondansetron HCl (Ondansetron Inj 2 Mg/Ml 2 Ml Vial) 4 mg IV Q6H PRN PRN Reason: Nausea Stop: 07/23/25 16:46 Polyethylene Glycol (Polyethylene (Miralax) 17 Gm Pack) 17 gm PO DAILY PRN PRN Reason: Constipation Stop: 07/23/25 16:46 Potassium Chloride (Potassium Chloride Crtab 20 Meq Tabcr) 20 meq PO BID JOSE J Stop: 07/27/25 20:59
[2025-06-27] MEDS: POTASSIUM CHLORIDE CRTAB 20 MEQ TABCR PO SCH (22:08)
[2025-06-28 06:50] LABS: Hematocrit (blood only) 33.4 % (42.0-52.0); Hemoglobin 12.1 g/dL (14.0-18.0); Mean Corpuscular Hemoglobin 31.9 pg (25.0-34.0); Mean Corpuscular Volume 88.1 fL (80.0-100.0); Platelet Count 354 K/uL (130-400); RDW Standard Deviation 41.8 fL (36.4-46.3); Red Blood Count 3.79 M/uL (4.70-6.10); White Blood Count 9.83 K/ul (4.8-10.8)
[2025-06-28 07:46] LABS: Anion Gap 8.0 (3-11); Blood Urea Nitrogen 16.0 mg/dl (6-23); Calcium 7.9 mg/dl (8.6-10.3); Carbon Dioxide 18.0 mmol/L (21-32); Chloride 110.0 mmol/L (98-107); Creatinine Clr Calc Pharmacy 65.7 ml/min; Glucose 111.0 mg/dl (70-99(Fasting)); Magnesium 1.8 mg/dl (1.7-2.4); Potassium 3.8 mmol/L (3.5-5.1); Sodium 136.0 mmol/L (136-145)
[2025-06-28 08:49] VITALS: TEMP 97.7
--- NOTE | 2025-06-28 10:06 | Nephrology Progress Note ---
Date of Service June 28, 2025 Assessment & Plan Admission and Anticipated Discharge Date Admission Date: June 23, 2025 Subjective Assessment & Plan (1) Acute kidney injury: baseline creat 1.3 and was 3.37 on Adx but now trending down with ivf. most current 1.6 so did have improvement. Last baseline was 1.3 renal imaging fine although presence of b/l renal calculi noted on CT--not new has micro hematuria and some protein in urine UA. need to repeat it again after well hydrated--has renal stone to cause this. Check urine PCR and UA at hospital f/u hold off ARB for now. unlikely he has anything primary kidney cadet but will need nephrology f/u after discharge. (2) Hypokalemia: Now low normal. continue kcl to 20 bid. Also add Slow mg 64 once daily. Normal K today (3) Hyponatremia: 126 on admission and now 136. Hypovolemic Hyponatremia--true salt defect from GI loss do renal panel daily. At Discharge: 1hold off ARB/ZOE till seen by nephrology and/or normal PO intake 2 Add kcl 20 bid and slow mag 64 daily for discharge 3 nephrology f/u within 1-2 week. Needs CBC, renal paanel, UA, urine PCR and urine ACR through nephrology nurisng. S--no new issues. getting better. Vital signs are good. Making urine. reviewed ID note. ROS--otherwise 12 Systems negative Physical Exam Physical Exam: Gen: A&O 3 NAD HEENT: Dry mucous membranes. Neck: Supple, no JVD Lungs: b/l Clear CV: RRR, no edema. Abdomen: Soft, nondistended, No tenderness. Skin: No rashes, petechiae, lesions. Psych: Appropriate for situation. Results & Data Vital Signs (Past 12 Hours) Vital Signs Temp Pulse Pulse Resp BP Pulse Ox O2 Del Method 06/28/25 08:48 36.5 C 80 17 145/76 H 97 Room Air 06/28/25 07:18 98 H 06/28/25 02:48 36.7 C 86 18 144/79 H 98 Room Air 06/27/25 22:21 36.5 C 85 18 119/63 95 Room Air 06/27/25 22:14 97 H
--- NOTE | 2025-06-28 12:11 | Hospitalist Progress Note ---
Date of Service June 28, 2025 Assessment & Plan (1) Hypertension: (2) CKD stage 3a, GFR 45-59 ml/min: (3) GERD (gastroesophageal reflux disease): (4) Hypokalemia: (5) Acute diarrhea: (6) Sepsis: (7) Hyponatremia: Plan 54 yo male with pmhx of HTN, GERD, CKD stage 3b, class II obesity who presents for not feeling well at home 2/2 sepsis from acute diarrheal illness. Sepsis Acute Diarrhea likely viral etiology BioFire negative Stool PCR, stool for C. difficile negative Chest x-ray showed no acute process Blood cultures pending--no growth to date Empirically on Zosyn Appreciate infectious disease input Clinically improved Plan to be discharged home today Hepatic cyst Splenomegaly Bilateral nonobstructing renal calculi Incidental findings on CT --CT ABD:No acute intra-abdominal pathology identified. Bilateral nonobstructing renal calculi (up to 3 mm) without hydronephrosis. Mild nonspecific perinephric fat stranding. Splenomegaly (14.5 cm). Multiple simple hepatic cysts, the largest measuring 2.6 cm. Small bilateral fat-containing inguinal hernias. No signs of complications. No significant interval changes. -- Follow-up as outpatient CHRISTIANO on CKD Stage 3a Hypovolemic Hyponatremia Hypokalemia -likely in setting of poor PO intake, diarrhea, nausea, vomiting Creatinine level improved to 1.6 appreciate nephrology input Needs follow-up with nephrology on discharge HTN -hold losartan Continue metoprolol DVT Px: Heparin SQ CODE STATUS Full code Disposition Home Admission and Anticipated Discharge Date Admission Date: June 23, 2025 Subjective Patient is seen and examined at bedside States feeling well today Weakness much improved No recurrence of diarrhea Denies any chest pain, dyspnea, nausea, vomiting, abdominal pain Discussed with nephrology today Plan to be discharged home today Review of Systems Review of Systems: All systems reviewed & are unremarkable except as noted in Subjective Physical Exam Physical Exam: Physical Exam: Vitals signs as noted above General Appearance:Obese, no apparent distress Head: normocephalic, Atraumatic Eyes: normal inspection, EOMI Neck: supple, Trachea midline Respiratory/Chest: Normal breath sounds, CTA, No accessory muscle use Cardiovascular: S1, S2, No murmur Abdomen/GI:Soft, Non tender, Bowel sounds present Extremities/Musculoskeletal:normal inspection, no edema Neurologic/Psych:AAOX3, grossly no focal neurological deficits Skin: normal color, warm Results & Data Results & Data Vital Signs (Past 12 Hours) Vital Signs Temp Pulse Pulse Resp BP Pulse Ox O2 Del Method 06/28/25 08:48 36.5 C 80 17 145/76 H 97 Room Air 06/28/25 07:18 98 H 06/28/25 02:48 36.7 C 86 18 144/79 H 98 Room Air Laboratory Results Short CBC 06/28/25 Range/Units 06:28 WBC 9.83 (4.8-10.8) K/ul Hgb 12.1 L (14.0-18.0) g/dL Hct 33.4 L (42.0-52.0) % Plt Count 354 (130-400) K/uL BMP 06/28/25 06:28 Sodium 136 Potassium 3.8 Chloride 110 H Carbon Dioxide 18 L BUN 16 Creatinine 1.62 H D Glucose 111 H Calcium 7.9 L
[2025-06-28 12:29] VITALS: BP 139/81; PULSE 86; RESP 18; O2SAT 98
--- NOTE | 2025-06-28 17:35 | Discharge Summary ---
Date of Service June 28, 2025 Admission HPI Per Admitting Provider 54 yo male with pmhx of HTN, GERD, CKD stage 3b, class II obesity who presents for not feeling well at home. No admissions at this institution. In the ED, given fluids, potassium, CBC still pending, admitted to medicine for further workup. Patient seen and examined at bedside. Accompanied by friend. Patient has been feeling ill for days. Has diarrhea, fatigue, weakness, some nausea and vomiting. Has no other associated symptoms such as abdominal pain, chest pain, SOB, burning with urination, leg swelling. Symptoms have been present for around 5 days and has just been getting worse. Chewing tobacco use, social alcohol use, no drug use, works at [employer], full code. Admission Exam Per Admitting Provider Gen: A&O 3 NAD HEENT: NCAT, EOMI, not icteric. External ears normal. No rhinorrhea. Dry mucous membranes. Neck: Supple, full range of motion, no observable masses, No meningeal sign. Lungs: No Respiratory distress. CV: RRR, no edema. Abdomen: Soft, nondistended, No rebound tenderness. MSK: No joint swelling, no redness. Skin: No rashes, petechiae, lesions. Normal color per patient. Neuro: Normal Gait, Grossly intact. Psych: Appropriate for situation. Principal Diagnosis Sepsis likely due to viral etiology Acute kidney injury on CKD stage III Hypokalemia Hyponatremia Hypomagnesemia Hepatic cysts Splenomegaly Discharge Data Allergies Allergy/AdvReac Type Severity Reaction Status Date / Time No Known Allergies Allergy Unverified 06/23/25 11:14 Consultations 06/23/25 12:52 ED Decision to Admit Stat 06/24/25 08:22 Consult Nephrology Routine 06/26/25 08:12 Consult Infectious Diseases Routine Procedures Performed Laboratory Results WBC 9.83 K/ul (4.8-10.8) 06/28/25 06:28 RBC 3.79 M/uL (4.70-6.10) L 06/28/25 06:28 Hgb 12.1 g/dL (14.0-18.0) L 06/28/25 06:28 Hct 33.4 % (42.0-52.0) L 06/28/25 06:28 MCV 88.1 fL (80.0-100.0) 06/28/25 06:28 MCH 31.9 pg (25.0-34.0) 06/28/25 06:28 MCHC 36.2 g/dL (32.0-36.0) H 06/28/25 06:28 RDW Std Deviation 41.8 fL (36.4-46.3) 06/28/25 06:28 RDW Coeff of Imani 12.9 % (11.5-14.5) 06/28/25 06:28 Plt Count 354 K/uL (130-400) 06/28/25 06:28 MPV 8.1 fL (9.4-12.4) L 06/28/25 06:28 Neutrophils % (Manual) 88 % 06/23/25 11:22 Lymphocytes % (Manual) 5 % 06/23/25 11:22 Monocytes % (Manual) 5 % 06/23/25 11:22 Eosinophils % (Manual) 2 % 06/23/25 11:22 Neutrophils # (Manual) 17.29 K/uL (1.40-6.50) H 06/23/25 11:22 Total Absolute Neuts 17.29 K/uL (1.4-6.5) H 06/23/25 11:22 Lymphocytes # (Manual) 0.98 K/uL (1.2-3.4) L 06/23/25 11:22 Total Abs Lymphocytes 0.98 K/uL (1.2-3.4) L 06/23/25 11:22 Monocytes # (Manual) 0.98 K/uL (0.11-0.59) H 06/23/25 11:22 Eosinophils # (Manual) 0.39 K/uL (0-0.50) 06/23/25 11:22 PT 14.3 Seconds (9.0-12.0) H 06/23/25 11:22 INR 1.4 (0.9-1.1) H 06/23/25 11:22 Sodium 136 mmol/L (136-145) 06/28/25 06:28 Potassium 3.8 mmol/L (3.5-5.1) 06/28/25 06:28 Chloride 110 mmol/L (98-107) H 06/28/25 06:28 Carbon Dioxide 18 mmol/L (21-32) L 06/28/25 06:28 Anion Gap 8 (3-11) 06/28/25 06:28 BUN 16 mg/dl (6-23) 06/28/25 06:28 Creatinine 1.62 mg/dl (0.6-1.4) H D 06/28/25 06:28 Est Cr Clr Drug Dosing 65.7 ml/min 06/28/25 06:28 eGFR 49.51 06/28/25 06:28 BUN/Creatinine Ratio 9.9 (10-20) L 06/28/25 06:28 Glucose 111 mg/dl (70-99(Fasting)) H 06/28/25 06:28 Osmolality 284 mOsm/kg (280-300) 06/23/25 11:22 Lactate 1.3 mmol/L (0.4-2.0) 06/23/25 15:36 Calcium 7.9 mg/dl (8.6-10.3) L 06/28/25 06:28 Phosphorus 2.6 mg/dl (2.5-4.9) 06/28/25 06:28 Magnesium 1.8 mg/dl (1.7-2.4) 06/28/25 06:28 Total Bilirubin 1.0 mg/dl (0.2-1.0) 06/26/25 07:30 AST 32 U/L (13-39) 06/26/25 07:30 ALT 48 U/L (7-52) 06/26/25 07:30 Alkaline Phosphatase 53 U/L (34-104) 06/26/25 07:30 Total Creatine Kinase 480 U/L (30-223) H 06/23/25 11:22 Troponin I High Sens 26.3 pg/ml (0-20) H 06/23/25 13:30 Total Protein 5.9 gm/dl (6.0-8.3) L 06/26/25 07:30 Albumin 2.7 gm/dl (3.4-5.0) L 06/26/25 07:30 Globulin 3.2 gm/dl (2.5-4.0) 06/26/25 07:30 Albumin/Globulin Ratio 0.8 (0.9-2) L 06/26/25 07:30 TSH 0.943 uIu/ml (0.300-4.500) 06/23/25 11:22 Cortisol AM Sample 32.65 mcg/dl (6.2-22.6) H 06/24/25 06:59 Urine Color Yellow 06/24/25 10:50 Urine Appearance Cloudy (Clear) A 06/24/25 10:50 Urine pH 5.0 (4.5-7.5) 06/24/25 10:50 Ur Specific Vera 1.023 (1.000-1.030) 06/24/25 10:50 Urine Protein 1+ (Negative) H 06/24/25 10:50 Urine Glucose (UA) Negative (Negative) 06/24/25 10:50 Urine Ketones Negative (Negative) 06/24/25 10:50 Urine Blood 1+ (Negative) H 06/24/25 10:50 Urine Nitrite Negative (Negative) 06/24/25 10:50 Urine Bilirubin Negative (Negative) 06/24/25 10:50 Urine Urobilinogen Negative (Negative) 06/24/25 10:50 Ur Leukocyte Esterase Negative (Negative) 06/24/25 10:50 Urine WBC (Auto) 0-5 /hpf (0-5) 06/24/25 10:50 Urine RBC (Auto) 0-2 /hpf (0-2) 06/24/25 10:50 U Hyaline Cast (Auto) 3-5 /lpf (0-2) H 06/24/25 10:50 U Epithel Cells (Auto) 3-5 /hpf (0-2) H 06/24/25 10:50 Urine Bacteria (Auto) None Seen (None Seen) 06/24/25 10:50 Urine Osmolality 483 mOsm/kg (500-800) L 06/24/25 10:50 Ur Random Sodium 21 mmol/L 06/24/25 10:50 Urine Comment 06/24/25 10:50 Nasal Screen MRSA (PCR) Negative (Negative) 06/25/25 19:32 Stl C. cayetanensis PCR Not Detected (NotDetected) 06/24/25 15:00 Stool Rotavirus A PCR Not Detected (NotDetected) 06/24/25 15:00 Stl Adenov F 40/41 PCR Not Detected (NotDetected) 06/24/25 15:00 Stool Astrovirus (PCR) Not Detected (NotDetected) 06/24/25 15:00 Stool Campylobacter PCR Not Detected (NotDetected) 06/24/25 15:00 Stl C. diff Tox B Gene Negative Cdiff Gene (Neg) 06/24/25 15:00 Stl C. diff 027-NAP1-BI NEGATIVE 06/24/25 15:00 Stool Cryptosporidium PCR Not Detected (NotDetected) 06/24/25 15:00 Stl E.coli Shiga Tox PCR Not Detected (NotDetected) 06/24/25 15:00 Stl Enterotoxigenic E PCR Not Detected (NotDetected) 06/24/25 15:00 Stool EPEC (PCR) Not Detected (NotDetected) 06/24/25 15:00 Stool EAEC (PCR) Not Detected (NotDetected) 06/24/25 15:00 Stl E. histolytica PCR Not Detected (NotDetected) 06/24/25 15:00 Stool Giardia Lamblia PCR Not Detected (NotDetected) 06/24/25 15:00 Stool Salmonella PCR Not Detected (NotDetected) 06/24/25 15:00 Stool Sapovirus (PCR) Not Detected (NotDetected) 06/24/25 15:00 Stl P. shigelloides PCR Not Detected (NotDetected) 06/24/25 15:00 Stl Shigella/EIEC PCR Not Detected (NotDetected) 06/24/25 15:00 St Y.enterocolitica PCR Not Detected (NotDetected) 06/24/25 15:00 Stool Vibrio (PCR) Not Detected (NotDetected) 06/24/25 15:00 Stl Vibrio cholerae PCR Not Detected (NotDetected) 06/24/25 15:00 Stl Norovirus GI/GII PCR Not Detected (NotDetected) 06/24/25 15:00 Adenovirus (PCR) Not Detected (NotDetected) 06/23/25 11:19 B. pertussis DNA (PCR) Not Detected (NotDetected) 06/23/25 11:19 B.parapertussis DNA PCR Not Detected (NotDetected) 06/23/25 11:19 C. pneumoniae DNA (PCR) Not Detected (NotDetected) 06/23/25 11:19 Coronavirus OC43 (PCR) Not Detected (NotDetected) 06/23/25 11:19 Coronavirus HKU1 (PCR) Not Detected (NotDetected) 06/23/25 11:19 Coronavirus 229E (PCR) Not Detected (NotDetected) 06/23/25 11:19 SARS-CoV-2 (PCR) NEGATIVE (Negative) 06/23/25 11:19 SARS-CoV-2 (PCR) Not Detected (NotDetected) 06/23/25 11:19 Coronavirus NL63 (PCR) Not Detected (NotDetected) 06/23/25 11:19 Hepatitis C Antibody Negative (Negative) 06/23/25 15:36 Monoscreen Negative (Negative) 06/23/25 11:22 HIV 1&2 Ab/P24 Ag 4thGn Negative (Negative) 06/23/25 15:36 Human Metapneumovir PCR Not Detected (NotDetected) 06/23/25 11:19 Influenza Type A (PCR) Negative (Neg) 06/23/25 11:19 Influenza Type A (PCR) Not Detected (NotDetected) 06/23/25 11:19 Influenza Type B (PCR) Negative (Neg) 06/23/25 11:19 Influenza Type B (PCR) Not Detected (NotDetected) 06/23/25 11:19 M. pneumoniae (PCR) Not Detected (NotDetected) 06/23/25 11:19 Parainfluenza 1 (PCR) Not Detected (NotDetected) 06/23/25 11:19 Parainfluenza 2 (PCR) Not Detected (NotDetected) 06/23/25 11:19 Parainfluenza 3 (PCR) Not Detected (NotDetected) 06/23/25 11:19 Parainfluenza 4 (PCR) Not Detected (NotDetected) 06/23/25 11:19 RSV (RT-PCR) Negative (Neg) 06/23/25 11:19 RSV (PCR) Not Detected (NotDetected) 06/23/25 11:19 Entero/Rhino (PCR) Not Detected (NotDetected) 06/23/25 11:19 Impressions Chest X-Ray 06/23/25 11:15 XR chest 1V portable CLINICAL HISTORY: weakness COMPARISON STUDY: No previous studies for comparison. FINDINGS: Lung volumes are normal. Lungs are clear. There is no pneumothorax or pleural effusion. Cardiac size is normal. Mediastinal contours are normal. There is no evidence for pulmonary edema. IMPRESSION: No acute cardiopulmonary findings. ACT 112: Negative or not required by law. Electronically signed by: Jay Jaimes M.D. 06/23/2025 11:51 AM Renal Ultrasound 06/23/25 12:55 Technique: Renal sonography was performed Findings: The kidneys are of normal size and echogenicity. The right kidney measures 11.7 cm in length and the left kidney measures 12.5 cm in length. There is no hydronephrosis or visualized hydroureter. No definite renal calculus or mass is seen. The urinary bladder appears unremarkable. The spleen is enlarged measuring 16 cm Impression: 1. Normal-appearing kidneys 2. Splenomegaly Electronically signed by Pedro Strickland 06-23-2025 5:25 PM Abdomen/Pelvis CT 06/26/25 05:17 EXAM: CT abd pelvis wo con CLINICAL HISTORY: RLQ abd pain TECHNIQUE: Non-contrast CT of the abdomen and pelvis was performed, with the following protocol: axial images, and reconstructed coronal and sagittal images. One of the following dose reduction techniques was utilized for this exam: Automated exposure control, adjustment of the mA and/or kV according to patient size, and use of iterative reconstruction. COMPARISON: 06/23/2025. FINDINGS: Abdomen: Liver: The liver is normal in size, contour, and attenuation with no imaging features of cirrhosis or significant fatty infiltration. Several simple hepatic cysts are noted, measuring up to 2.6 cm. No solid hepatic mass is identified. Gallbladder and Biliary System: The gallbladder is unremarkable. No gallstones, wall thickening, pericholecystic fluid, or biliary ductal dilatation is identified. Pancreas: The pancreas demonstrates normal size and attenuation with preserved morphology. No focal mass or features of acute or chronic pancreatitis are seen. The pancreatic duct is normal in caliber. Spleen: The spleen is enlarged, measuring up to 14.5 cm in craniocaudal length. No focal splenic lesion is identified. A small soft-tissue nodule near the splenic hilum is noted, consistent with a splenule. Adrenal Glands: Both adrenal glands are unremarkable. Kidneys and Urinary Tract: Both kidneys are normal in size and position with preserved cortical thickness. Bilateral nonobstructing renal calculi are present, measuring up to 3 mm, with mild nonspecific perinephric fat stranding. No hydronephrosis or renal mass is identified. No distal ureteral or urinary bladder calculi are seen. Abdominal Aorta and Vessels: The abdominal aorta and iliac arteries are normal in caliber. No aneurysm is identified. Gastrointestinal Tract: The stomach appears normal. Small and large bowel loops are unremarkable with no evidence of obstruction or wall thickening. The appendix is normal in appearance. Peritoneal and Retroperitoneal Structures: No free intraperitoneal fluid or air is identified. No abdominal or pelvic lymphadenopathy is seen. Pelvis: The urinary bladder demonstrates normal contour and wall thickness with no intraluminal mass. No pelvic adenopathy is noted. Small bilateral inguinal hernias containing only fat are present. The prostate is unremarkable . Lung Bases: The visualized lung bases are clear. Bones and Soft Tissues: Mild thoracolumbar degenerative disc disease is present. No acute fracture or focal osseous lesion is identified. IMPRESSION: 1. No acute intra-abdominal pathology identified. 2. Bilateral nonobstructing renal calculi (up to 3 mm) without hydronephrosis. Mild nonspecific perinephric fat stranding. 3. Splenomegaly (14.5 cm). 4. Multiple simple hepatic cysts, the largest measuring 2.6 cm. 5. Small bilateral fat-containing inguinal hernias. No signs of complications. 6. No significant interval changes. Electronically signed by Boris Carlson 06-26-2025 06:28 AM Ordered Studies 06/23/25 12:55 US Renal Bladder [US renal/blad retro comp] Urgent 06/23/25 14:45 CT abd pelvis IV con only Urgent 06/26/25 05:17 CT Abd and Pelvis [CT abd pelvis wo con] Urgent Hospital Course (1) Hypertension: (2) CKD stage 3a, GFR 45-59 ml/min: (3) GERD (gastroesophageal reflux disease): (4) Hypokalemia: (5) Acute diarrhea: (6) Sepsis: (7) Hyponatremia: Plan 54 yo male with pmhx of HTN, GERD, CKD stage 3b, class II obesity who presents for not feeling well at home 2/2 sepsis from acute diarrheal illness. Sepsis Acute Diarrhea likely viral etiology BioFire negative Stool PCR, stool for C. difficile negative Chest x-ray showed no acute process Blood cultures pending--no growth to date Empirically on Zosyn Appreciate infectious disease input Clinically improved Plan to be discharged home today Hepatic cysts Splenomegaly Bilateral nonobstructing renal calculi Incidental findings on CT --CT ABD:No acute intra-abdominal pathology identified. Bilateral nonobstructing renal calculi (up to 3 mm) without hydronephrosis. Mild nonspecific perinephric fat stranding. Splenomegaly (14.5 cm). Multiple simple hepatic cysts, the largest measuring 2.6 cm. Small bilateral fat-containing inguinal hernias. No signs of complications. No significant interval changes. -- Follow-up as outpatient CHRISTIANO on CKD Stage 3a Hypovolemic Hyponatremia Hypokalemia -likely in setting of poor PO intake, diarrhea, nausea, vomiting Creatinine level improved to 1.6 appreciate nephrology input Needs follow-up with nephrology on discharge HTN -hold losartan Continue metoprolol DVT Px: Heparin SQ CODE STATUS Full code Disposition Home Total Time Total Time Spent Total Time Spent (In Minutes): 52 minutes Discharge Plan Discharge Items Patient Disposition: Home - Self-Care Reason For Visit: CHRISTIANO Discharge Diagnosis: Sepsis likely due to viral etiology Acute kidney injury on CKD stage III Hypokalemia Hyponatremia Hypomagnesemia Condition on Discharge: Fair Activity: Per Instructions section Exercise/Sports: Wait until after follow-up appointment Non-emergency contact: Primary Care Provider and [employer] Call non-emergency contact if: you have any medication questions, your symptoms worsen, your pain is concerning for you and you have a fever Follow-up/Referrals: Bethel Vora MD [Surgeon] - (The office will call you with a follow up appointment.) Jeana Coleman MD [Primary Care Provider] - (Date & Time 07/03/2025 9:00 AM Provider: Farhad Nielson CRNP [facility] ) Diet: Regular Addtl Attending Provider Instructions: -- Follow-up with your primary care physician Dr. Zachariah Bucio on 07/03/2025 9:00 AM -- Follow-up with your proposition player Dr. Vora in 1 week with repeat blood work and urine studies as recommended. Office will call you with details. --Get blood work to monitor your electrolytes and kidney function (CBC, basic metabolic panel, magnesium level, urine studies) in 1 week and follow-up with your proposition player for further recommendations Seek immediate medical attention if your symptoms reoccur or worsen Please review medication list provided on discharge for any medication changes as instructed. Please call if you have any questions or problems. You can reach a [facility] hospitalist on duty at [facility] 24 hours a day by calling [phone] Pending Studies at Discharge: No Stand-Alone Forms: My [facility], Smoking Cessation Medications and DC Order Prescriptions: New potassium chloride 20 mEq Tablet,Er Particles/Crystals 20 meq PO BID Qty: 14 0RF magnesium chloride [Mag 64] 64 mg Tablet,Delayed Release (Dr/Ec) 64 mg PO QAM Qty: 7 0RF Continued metoprolol succinate [Toprol XL] 25 mg Tablet Extended Release 24 Hr 25 mg PO DAILY Held losartan 50 mg Tablet 50 mg PO DAILY Hold Instructions: Hold taking until further recommendations from your proposition player Discharge Orders: Discharge Order (Routine); Ordered 06/28/25 Ordered By: Chano Pedraza Admission Data Admit Date/Time: 06/23/25 12:54 Attending Provider: Chano Pedraza Admit Provider: Isidoro Choudhary Primary Care Provider: Jeana Coleman Other Providers: Isidoro Choudhary; Galen Vora Carlos M.; Beatrice Matias; Regan Hurt I.; Malik Alicea II; Adamaris Richmond; Nick Witt; Donn Bautista; Beto Nunn Other Interventions: Discharge Summary Assessment (RN) Last Done: 06/28/25 12:51
== END 2025-06-28 13:27 | disposition home or self-care (01) | DRG 872 ==
LOC: ED 10:50 → SUATTDRO 12:54 → 2N 12:54